=== PATIENT | male | born 1950 | race Caucasian/White ===

== ENCOUNTER 2020-12-11 00:32 | Inpatient (IN) | payer MEDICARE, OTHER ==
[~2020-12-11] VITALS: Ht 180.3 cm; Wt 85.0 kg
[2020-12-11 02:13] LABS: Basophils # (auto) 0 10 ^3/uL (0-0.2); Eosinophils # (auto) 0 10 ^3/uL (0-0.8); Hematocrit 31.2 % (41.0-53.0); Hemoglobin 10.7 g/dL (13.5-17.5); Lymphocytes # (auto) 0.3 10 ^3/uL (0.4-5.4); Lymphocytes % (auto) 4.2 % (10.0-50.0); Mean Corpuscular Hemoglobin 31.3 pg (28.0-32.0); Mean Corpuscular Hgb Conc. 34.5 g/dL (32.0-36.0); Mean Corpuscular Volume 90.9 fL (80.0-100.0); Monocytes # (auto) 0.1 10 ^3/uL (0-1.3); Monocytes % (auto) 1.4 % (0.0-12.0); Neutrophils # (auto) 7.5 10 ^3/uL (1.6-8.6); Neutrophils % (auto) 94.4 % (37.0-80.0); Platelet Count (auto) 67 10^3/uL (140-450); Red Blood Cells 3.43 10^6/uL (4.5-5.90)
[2020-12-11 02:19] LABS: Alanine Aminotransferase 30 U/L (16-61); Albumin 2.7 g/dL (3.4-5.0); Anion Gap 15 (5-15); Aspartate Aminotransferase 58 U/L (15-37); BUN/Creatinine Ratio 13.9; Blood Alcohol < 3.0 mg/dL (0-5); Blood Urea Nitrogen 27 mg/dL (7-18); Calcium 7.7 mg/dL (8.5-10.1); Carbon Dioxide 16 mmol/L (21-32); Chloride 109 mmol/L (98-107); GFR African American 44 mL/min; GFR Non-African American 37 mL/min; Glucose 87 mg/dL (74-106); Magnesium 1.5 mg/dL (1.6-2.6); Potassium 4.2 mmol/L (3.5-5.1); Sodium 140 mmol/L (136-145)
[2020-12-11 02:22] LABS: Lactic Acid w/Reflex 6.3 mmol/L (0.4-2.0)
[2020-12-11 02:24] LABS: Alkaline Phosphatase 59 U/L (45-117); Total Protein 6.6 g/dL (6.4-8.2)
[2020-12-11 02:42] LABS: Partial Thromboplastin Time 33.6 sec (23.0-31.2)
[2020-12-11 02:43] LABS: Urine Amorphous Crystal FEW /hpf (None Seen); Urine Bacteria FEW /hpf (None Seen); Urine Blood 3+ /uL (Negative); Urine Mucus FEW (None Seen); Urine Specific Gravity 1.017 (1.001-1.035); Urine WBC 4 /hpf (0 - 3)
[2020-12-11 02:58] LABS: Alcohol, Urine < 3.0 mg/dL (0-10); Amphetamine Screen, Urine POSITIVE (NEGATIVE); Barbiturate Scree,Urine NEGATIVE (NEGATIVE); Benzodiazephine Screen, Urine NEGATIVE (NEGATIVE); Cannabinoid Screen, Urine NEGATIVE (NEGATIVE); Cocaine Screen, Urine NEGATIVE (NEGATIVE); Opiate Scree,Urine NEGATIVE (NEGATIVE); Phencyclidine Screen, Urine NEGATIVE (NEGATIVE)
[2020-12-11] MEDS ORDERED: ACETAMINOPHEN 325 MG TAB PO ONE (03:00)
[2020-12-11] MEDS ORDERED: SODIUM CHLORIDE 0.9% 500 ML IV ONE (03:30)
[2020-12-11] MEDS ORDERED: PIPERACILLIN-TAZOB 3.375GM 100 ML IV ONE (03:30)
[2020-12-11] MEDS ORDERED: SODIUM CHLORIDE 0.9% 1,000 ML IV ONE (03:30)
[2020-12-11] MEDS ORDERED: ENOXAPARIN SOD 100 MG/1 ML SYRINGE SC ONE (03:30)
[2020-12-11] MEDS ORDERED: VANCOMYCIN 1GM/250ML 250 ML IV ONE (04:00)
[2020-12-11] MEDS ORDERED: ONDANSETRON HCL 4 MG/2 ML VIAL IV PRN (06:30)
[2020-12-11] MEDS ORDERED: VANCOMYCIN PER PHARMACY 0 MG IV SCH ×2 (06:30→12:45)
[2020-12-11] MEDS ORDERED: NITROGLYCERIN 0.4 MG SL TAB SL PRN (06:30)
[2020-12-11] MEDS ORDERED: MORPHINE SULF INJ 2 MG/ML SYRINGE 1ML IV PRN (06:30)
[2020-12-11] MEDS ORDERED: ALBUMIN 5% 250 ML IV ONE (07:45)
[2020-12-11] MEDS ORDERED: ASPirin 81 mg TAB PO SCH (10:00)
[2020-12-11] MEDS ORDERED: IOHEXOL 350 MG/ML 100ML IJ ONE (11:27)
[2020-12-11] MEDS ORDERED: LIDOCAINE 2%HCL (LOCAL ANESTH.) INJ 20ML MDV ONE (11:27)
[2020-12-11] MEDS ORDERED: fentaNYL CITRATE 100 MCG/2 ML VL ONE (11:33)
[2020-12-11] MEDS ORDERED: ANGIOMAX 250 MG VIAL IV ONE (11:33)
[2020-12-11] MEDS ORDERED: SODIUM CHL 0.9% 50 ML ONE (11:34)
[2020-12-11] MEDS ORDERED: MIDAZOLAM HCL 1MG/1ML-2 ML VIAL ONE (11:34)
[2020-12-11] MEDS ORDERED: ASPirin 325 MG TAB ONE (12:00)
[2020-12-11] MEDS ORDERED: PIPERACILLIN-TAZOB 3.375GM 100 ML IV SCH (12:00)
[2020-12-11] MEDS ORDERED: PIPERACILLIN-TAZOB 2.25GM 50 ML IV SCH (12:00)
[2020-12-11] MEDS ORDERED: TICAGRELOR 90 MG TAB ONE (12:00)
[2020-12-11] MEDS: PANTOPRAZOLE 40 MG TAB PO SCH (13:36)
[2020-12-11] MEDS: MAGNESIUM SULFATE 1GM/100ML 100 ML IV SCH ×2 (14:01→15:04)
[2020-12-11] MEDS ORDERED: OMEP-434 PO (15:00)
[2020-12-11] MEDS ORDERED: LISI-275 PO (15:00)
[2020-12-11] MEDS ORDERED: METF-370 PO (15:00)
[2020-12-11] MEDS ORDERED: ATOR40TA52 PO (15:00)
[2020-12-11] MEDS ORDERED: CLOP75TA70 PO (15:00)
[2020-12-11] MEDS ORDERED: MULT-223 PO (15:00)
[2020-12-11] MEDS ORDERED: CHOL20007 OR (15:00)
[2020-12-11] MEDS ORDERED: BUPR100T14 PO (15:00)
[2020-12-11] MEDS ORDERED: GLIP5TAB12 PO (15:00)
[2020-12-11 15:06] VITALS: BP 99/56
[2020-12-11] MEDS: ALBUMIN 25% 100 ML IV SCH ×2 (16:11→19:24)
[2020-12-11] MEDS ORDERED: CEFTRIAXONE SODIUM 2 GM in D5W 5% 50 ML IV ONE (17:00)
[2020-12-11 19:24] VITALS: BP 121/63
[2020-12-11] MEDS ORDERED: HYDROcodone-ACET 5/325MG TAB PO PRN (21:00)
[2020-12-11] MEDS: ATORVASTATIN 20 MG TAB PO SCH (21:24)
[2020-12-11 22:00] VITALS: BP 107/54
[2020-12-11] MEDS ORDERED: ATORVASTATIN 20 MG TAB PO SCH (22:00)
[2020-12-12] VITALS (57 sets, daily range): BP systolic 67–161; BP diastolic 26–78
[2020-12-12] MEDS: ALBUMIN 25% 100 ML IV SCH (04:59)
[2020-12-12] MEDS ORDERED: LORazepam 2MG/ML-1ML VIAL IV ONE (05:45)
[2020-12-12] MEDS ORDERED: LORazepam 2MG/ML-1ML VIAL IM ONE (05:45)
[2020-12-12] MEDS ORDERED: ALBUTEROL SULF 2.5 MG/0.5ML(0.5%) NEB SOLN ONE (05:56)
[2020-12-12] MEDS ORDERED: IPRATROPIUM BROM 0.5 MG/2.5ML INH SOL ONE (05:56)
[2020-12-12] MEDS ORDERED: SUCCINYLCHOLINE CHLORIDE 20 MG/ML 10ML VIAL IV ONE (05:59)
[2020-12-12] MEDS ORDERED: ETOMIDATE (2MG/ML) 20ML VIAL IV ONE (06:00)
[2020-12-12] MEDS ORDERED: PROPOFOL 100 ML IV ONE (06:20)
[2020-12-12] MEDS: MIDAZOLAM DRIP 50 mg/50mL 50 ML IV SCH ×3 (06:30→21:30)
[2020-12-12] MEDS ORDERED: MIDAZOLAM DRIP 50 mg/50mL 50 ML IV ONE (06:30)
[2020-12-12] MEDS: PROPOFOL 100 ML IV SCH ×5 (06:30→23:30)
[2020-12-12 07:21] LABS: Basophils # (auto) 0.2 10 ^3/uL (0-0.2); Basophils % (auto) 0.9 % (0.0-2.0); Eosinophils # (auto) 0.1 10 ^3/uL (0-0.8); Eosinophils % (auto) 0.4 % (0.0-7.0); Hematocrit 30.4 % (41.0-53.0); Hemoglobin 10.3 g/dL (13.5-17.5); Lymphocytes % (auto) 8.7 % (10.0-50.0); Mean Corpuscular Hemoglobin 31.6 pg (28.0-32.0); Mean Corpuscular Volume 92.8 fL (80.0-100.0); Monocytes # (auto) 1.4 10 ^3/uL (0-1.3); Platelet Count (auto) 102 10^3/uL (140-450); Red Blood Cells 3.28 10^6/uL (4.5-5.90); Red Cell Distribution Width 15.3 % (11.8-14.3); White Blood Cell 22.6 10^3/uL (4.4-10.8)
[2020-12-12] MEDS ORDERED: NOREPINEPHRINE 8 MG/250ML KIT 250 ML IV ONE (07:34)
[2020-12-12 07:44] LABS: Potassium 4.6 mmol/L (3.5-5.1)
[2020-12-12 08:00] LABS: Albumin 3.7 g/dL (3.4-5.0); BUN/Creatinine Ratio 21.3; Bilirubin, Total 1.6 mg/dL (0.2-1.0); Total Protein 7.1 g/dL (6.4-8.2)
[2020-12-12] MEDS: NOREPINEPHRINE 8 MG/250ML KIT 250 ML IV SCH (08:36)
[2020-12-12] MEDS: SODIUM BICARBONATE 50ML VIAL 150 ML in D5W 5% 1,000 ML IV SCH ×2 (09:30→20:50)
[2020-12-12] MEDS: PANTOPRAZOLE 40 MG TAB PO SCH (10:00)
[2020-12-12] MEDS ORDERED: CEFTRIAXONE SODIUM 2 GM in D5W 5% 50 ML IV SCH (10:00)
[2020-12-12] MEDS ORDERED: SACUBITRIL-VALSARTAN 24mg/26mg TAB PO SCH (10:00)
[2020-12-12] MEDS ORDERED: LINEZOLID 600MG/300ML 300 ML IV SCH (10:00)
[2020-12-12] MEDS: ASPirin 81 mg TAB PO SCH (11:03)
[2020-12-12] MEDS: CLOPIDOGREL BISULFATE 75 MG TAB PO SCH (11:04)
[2020-12-12] MEDS ORDERED: MEROPENEM 1GM IVPB 100 ML IV SCH (12:00)
[2020-12-12] MEDS ORDERED: ENOXAPARIN SOD 100 MG/1 ML SYRINGE SC SCH (13:00)
[2020-12-12] MEDS ORDERED: PENICILLIN G POTASSIUM 4,000,000 UNITS in D5W 5% 50 ML IV SCH (15:00)
[2020-12-12] MEDS: CEFTRIAXONE SODIUM 2 GM in D5W 5% 50 ML IV SCH (20:51)
[2020-12-12] MEDS: ATORVASTATIN 20 MG TAB PO SCH (22:18)
[2020-12-13] VITALS (104 sets, daily range): BP systolic 82–145; BP diastolic 39–73
[2020-12-13 05:09] LABS: Basophils # (auto) 0 10 ^3/uL (0-0.2); Basophils % (auto) 0.3 % (0.0-2.0); Eosinophils # (auto) 0.5 10 ^3/uL (0-0.8); Hemoglobin 8.7 g/dL (13.5-17.5); Lymphocytes # (auto) 0.8 10 ^3/uL (0.4-5.4); Mean Corpuscular Hemoglobin 31.2 pg (28.0-32.0); Mean Corpuscular Hgb Conc. 34.8 g/dL (32.0-36.0); Mean Corpuscular Volume 89.7 fL (80.0-100.0); Monocytes # (auto) 0.8 10 ^3/uL (0-1.3); Monocytes % (auto) 8.9 % (0.0-12.0); Neutrophils # (auto) 7.4 10 ^3/uL (1.6-8.6); Neutrophils % (auto) 77.8 % (37.0-80.0); Platelet Count (auto) 76 10^3/uL (140-450); Red Blood Cells 2.79 10^6/uL (4.5-5.90); Red Cell Distribution Width 14.6 % (11.8-14.3); White Blood Cell 9.5 10^3/uL (4.4-10.8)
[2020-12-13] MEDS: PROPOFOL 100 ML IV SCH ×2 (08:54→21:05)
[2020-12-13] MEDS: SODIUM BICARBONATE 50ML VIAL 150 ML in D5W 5% 1,000 ML IV SCH (08:55)
[2020-12-13] MEDS: CLOPIDOGREL BISULFATE 75 MG TAB PO SCH (09:29)
[2020-12-13] MEDS: ASPirin 81 mg TAB PO SCH (09:29)
[2020-12-13] MEDS: PANTOPRAZOLE 40 MG TAB PO SCH (09:41)
[2020-12-13] MEDS: CEFTRIAXONE SODIUM 2 GM in D5W 5% 50 ML IV SCH ×2 (09:45→20:46)
[2020-12-13] MEDS ORDERED: ENOXAPARIN SOD 40 MG/0.4 ML SYRINGE SC SCH (10:00)
[2020-12-13] MEDS: NOREPINEPHRINE 8 MG/250ML KIT 250 ML IV SCH (10:35)
[2020-12-13] MEDS: MIDAZOLAM DRIP 50 mg/50mL 50 ML IV SCH ×2 (12:54→21:05)
[2020-12-13 15:11] LABS: Protein, CSF 75.1 mg/dL (15-45)
[2020-12-13 16:20] LABS: CSF White Blood Cells 1 CUMM (0-5)
[2020-12-13] MEDS: SODIUM BICARBONATE 50ML VIAL 50 ML in SOD CHL 0.45% 1,000 ML IV SCH (18:27)
[2020-12-13] MEDS: ATORVASTATIN 20 MG TAB PO SCH (22:14)
[2020-12-14] VITALS (104 sets, daily range): BP systolic 87–147; BP diastolic 40–69
[2020-12-14 04:18] LABS: Basophils # (auto) 0 10 ^3/uL (0-0.2); Basophils % (auto) 0.3 % (0.0-2.0); Eosinophils # (auto) 0.3 10 ^3/uL (0-0.8); Eosinophils % (auto) 5.6 % (0.0-7.0); Hematocrit 25.2 % (41.0-53.0); Hemoglobin 8.8 g/dL (13.5-17.5); Lymphocytes # (auto) 0.5 10 ^3/uL (0.4-5.4); Mean Corpuscular Hemoglobin 31.2 pg (28.0-32.0); Mean Corpuscular Hgb Conc. 34.8 g/dL (32.0-36.0); Mean Corpuscular Volume 89.7 fL (80.0-100.0); Monocytes # (auto) 0.8 10 ^3/uL (0-1.3); Monocytes % (auto) 14.6 % (0.0-12.0); Neutrophils % (auto) 70.5 % (37.0-80.0); Nucleated Red Blood Cells % 0.1 %; Platelet Count (auto) 64 10^3/uL (140-450); Potassium 3.5 mmol/L (3.5-5.1); Red Blood Cells 2.81 10^6/uL (4.5-5.90); Red Cell Distribution Width 14.5 % (11.8-14.3); White Blood Cell 5.7 10^3/uL (4.4-10.8)
[2020-12-14 04:23] LABS: BUN/Creatinine Ratio 25.8; Calcium 7.3 mg/dL (8.5-10.1); Magnesium 2.2 mg/dL (1.6-2.6)
[2020-12-14] MEDS: SODIUM BICARBONATE 50ML VIAL 50 ML in SOD CHL 0.45% 1,000 ML IV SCH (04:37)
[2020-12-14] MEDS: PROPOFOL 100 ML IV SCH ×4 (04:38→19:30)
[2020-12-14] MEDS: NOREPINEPHRINE 8 MG/250ML KIT 250 ML IV SCH (04:39)
[2020-12-14] MEDS: CLOPIDOGREL BISULFATE 75 MG TAB PO SCH (09:13)
[2020-12-14] MEDS: ASPirin 81 mg TAB PO SCH (09:13)
[2020-12-14] MEDS: CEFTRIAXONE SODIUM 2 GM in D5W 5% 50 ML IV SCH ×2 (09:15→20:33)
[2020-12-14] MEDS: SODIUM CHLORIDE 0.9% 1,000 ML IV SCH ×2 (09:15→20:33)
[2020-12-14 09:34] LABS: Protein, Urine 22.9 mg/dL (0.0-11.9)
[2020-12-14] MEDS ORDERED: PANTOPRAZOLE 40 MG/10 ML VIAL INJ IV SCH (10:00)
[2020-12-14] MEDS: MIDAZOLAM DRIP 50 mg/50mL 50 ML IV SCH (11:28)
[2020-12-14] MEDS: PANTOPRAZOLE 40 MG/10 ML VIAL INJ IV SCH (22:18)
[2020-12-14] MEDS: ATORVASTATIN 20 MG TAB PO SCH (22:18)
[2020-12-15] VITALS (101 sets, daily range): BP systolic 82–127; BP diastolic 45–65
[2020-12-15] MEDS: PROPOFOL 100 ML IV SCH ×4 (01:48→18:10)
[2020-12-15 04:07] LABS: Basophils # (auto) 0 10 ^3/uL (0-0.2); Basophils % (auto) 0.3 % (0.0-2.0); Eosinophils # (auto) 0.2 10 ^3/uL (0-0.8); Hematocrit 24.1 % (41.0-53.0); Hemoglobin 8.3 g/dL (13.5-17.5); Lymphocytes # (auto) 0.6 10 ^3/uL (0.4-5.4); Lymphocytes % (auto) 10.7 % (10.0-50.0); Mean Corpuscular Hemoglobin 31.2 pg (28.0-32.0); Mean Corpuscular Hgb Conc. 34.5 g/dL (32.0-36.0); Mean Corpuscular Volume 90.5 fL (80.0-100.0); Monocytes # (auto) 0.9 10 ^3/uL (0-1.3); Monocytes % (auto) 15.6 % (0.0-12.0); Neutrophils # (auto) 4.2 10 ^3/uL (1.6-8.6); Neutrophils % (auto) 70.4 % (37.0-80.0); Nucleated Red Blood Cells % 0.1 %; Platelet Count (auto) 71 10^3/uL (140-450); Red Blood Cells 2.66 10^6/uL (4.5-5.90); Red Cell Distribution Width 14.3 % (11.8-14.3); White Blood Cell 5.9 10^3/uL (4.4-10.8)
[2020-12-15 04:22] LABS: Calcium 7.5 mg/dL (8.5-10.1); Magnesium 2.2 mg/dL (1.6-2.6); Potassium 3.5 mmol/L (3.5-5.1)
[2020-12-15 04:39] LABS: BUN/Creatinine Ratio 25.5; CRP High Sensitivity 15.6 mg/dL (< 0.3)
[2020-12-15 04:47] LABS: INR 1.08 (0.9-1.15); Partial Thromboplastin Time 32.2 sec (23.0-31.2)
[2020-12-15] MEDS: SODIUM CHLORIDE 0.9% 1,000 ML IV SCH (05:33)
[2020-12-15] MEDS: MIDAZOLAM DRIP 50 mg/50mL 50 ML IV SCH (05:35)
[2020-12-15] MEDS: NOREPINEPHRINE 8 MG/250ML KIT 250 ML IV SCH (07:45)
[2020-12-15] MEDS: CLOPIDOGREL BISULFATE 75 MG TAB PO SCH (09:42)
[2020-12-15] MEDS: PANTOPRAZOLE 40 MG/10 ML VIAL INJ IV SCH ×2 (09:42→21:49)
[2020-12-15] MEDS: ASPirin 81 mg TAB PO SCH (09:42)
[2020-12-15] MEDS: CEFTRIAXONE SODIUM 2 GM in D5W 5% 50 ML IV SCH (09:42)
[2020-12-15] MEDS: ATORVASTATIN 20 MG TAB PO SCH (21:49)
[2020-12-16] VITALS (100 sets, daily range): BP systolic 108–177; BP diastolic 54–82
[2020-12-16 04:08] LABS: Basophils # (auto) 0.1 10 ^3/uL (0-0.2); Basophils % (auto) 0.5 % (0.0-2.0); Eosinophils # (auto) 0.3 10 ^3/uL (0-0.8); Eosinophils % (auto) 2.5 % (0.0-7.0); Hematocrit 27.6 % (41.0-53.0); Hemoglobin 9.5 g/dL (13.5-17.5); Lymphocytes % (auto) 9.8 % (10.0-50.0); Mean Corpuscular Hemoglobin 30.7 pg (28.0-32.0); Mean Corpuscular Hgb Conc. 34.4 g/dL (32.0-36.0); Mean Corpuscular Volume 89.4 fL (80.0-100.0); Monocytes # (auto) 1.5 10 ^3/uL (0-1.3); Monocytes % (auto) 14.3 % (0.0-12.0); Neutrophils # (auto) 7.4 10 ^3/uL (1.6-8.6); Neutrophils % (auto) 72.9 % (37.0-80.0); Platelet Count (auto) 120 10^3/uL (140-450); Red Blood Cells 3.08 10^6/uL (4.5-5.90); Red Cell Distribution Width 14.7 % (11.8-14.3); White Blood Cell 10.2 10^3/uL (4.4-10.8)
[2020-12-16 04:26] LABS: Potassium 3.7 mmol/L (3.5-5.1)
[2020-12-16 04:31] LABS: BUN/Creatinine Ratio 26.7; Calcium 7.7 mg/dL (8.5-10.1)
[2020-12-16] MEDS: MIDAZOLAM DRIP 50 mg/50mL 50 ML IV SCH (07:00)
[2020-12-16] MEDS: NOREPINEPHRINE 8 MG/250ML KIT 250 ML IV SCH (07:45)
[2020-12-16] MEDS: ASPirin 81 mg TAB PO SCH (10:14)
[2020-12-16] MEDS: CLOPIDOGREL BISULFATE 75 MG TAB PO SCH (10:14)
[2020-12-16] MEDS: PANTOPRAZOLE 40 MG/10 ML VIAL INJ IV SCH ×2 (10:14→21:54)
[2020-12-16] MEDS: CEFTRIAXONE SODIUM 2 GM in D5W 5% 50 ML IV SCH (10:15)
[2020-12-16] MEDS: ATORVASTATIN 20 MG TAB PO SCH (21:54)
[2020-12-16] MEDS: Jevity 1.2 Cal/Fiber 1 Liter GT SCH (22:25)
[2020-12-17] VITALS (100 sets, daily range): BP systolic 84–197; BP diastolic 45–98
[2020-12-17] MEDS ORDERED: LABETALOL HCL 5 MG/ML 4ML SYRINGE IV ONE (00:30)
[2020-12-17 05:40] LABS: Basophils # (auto) 0.1 10 ^3/uL (0-0.2); Basophils % (auto) 0.7 % (0.0-2.0); Eosinophils # (auto) 0.5 10 ^3/uL (0-0.8); Eosinophils % (auto) 5.9 % (0.0-7.0); Hematocrit 28.6 % (41.0-53.0); Lymphocytes # (auto) 1.1 10 ^3/uL (0.4-5.4); Lymphocytes % (auto) 12.4 % (10.0-50.0); Mean Corpuscular Hgb Conc. 34.9 g/dL (32.0-36.0); Mean Corpuscular Volume 88.9 fL (80.0-100.0); Monocytes # (auto) 1.2 10 ^3/uL (0-1.3); Monocytes % (auto) 13.5 % (0.0-12.0); Neutrophils # (auto) 5.8 10 ^3/uL (1.6-8.6); Neutrophils % (auto) 67.5 % (37.0-80.0); Platelet Count (auto) 154 10^3/uL (140-450); Red Blood Cells 3.22 10^6/uL (4.5-5.90); Red Cell Distribution Width 14.8 % (11.8-14.3); White Blood Cell 8.6 10^3/uL (4.4-10.8)
[2020-12-17 05:59] LABS: BUN/Creatinine Ratio 27.6; Potassium 3.8 mmol/L (3.5-5.1)
[2020-12-17] MEDS ORDERED: dilTIAZem 25 MG/5 ML VIAL IV ONE (07:00)
[2020-12-17] MEDS: MIDAZOLAM DRIP 50 mg/50mL 50 ML IV SCH (07:00)
[2020-12-17] MEDS: PROPOFOL 100 ML IV SCH (07:45)
[2020-12-17] MEDS: NOREPINEPHRINE 8 MG/250ML KIT 250 ML IV SCH (07:45)
[2020-12-17] MEDS: MORPHINE SULF INJ 2 MG/ML SYRINGE 1ML IV PRN ×2 (09:14→22:43)
[2020-12-17] MEDS: ASPirin 81 mg TAB PO SCH (09:15)
[2020-12-17] MEDS: CLOPIDOGREL BISULFATE 75 MG TAB PO SCH (09:15)
[2020-12-17] MEDS: PANTOPRAZOLE 40 MG/10 ML VIAL INJ IV SCH ×2 (09:15→21:57)
[2020-12-17] MEDS: CEFTRIAXONE SODIUM 2 GM in D5W 5% 50 ML IV SCH (09:15)
[2020-12-17] MEDS ORDERED: ENOXAPARIN SOD 100 MG/1 ML SYRINGE SC SCH (10:00)
[2020-12-17] MEDS: SODIUM CHLORIDE 0.9% 1,000 ML IV SCH ×2 (10:07→21:58)
[2020-12-17] MEDS ORDERED: IOHEXOL 350 MG/ML 100ML IJ ONE (10:35)
[2020-12-17] MEDS: fentaNYL Drip 2500mCg/250mlNS 250 ML IV SCH ×2 (16:15→23:15)
[2020-12-17] MEDS ORDERED: HEPARIN SODIUM (PORCINE) 5000 UNITS/ML 1ML VIAL ONE (20:03)
[2020-12-17] MEDS: ATORVASTATIN 20 MG TAB PO SCH (21:49)
[2020-12-18] VITALS (84 sets, daily range): BP systolic 82–166; BP diastolic 45–90
[2020-12-18] MEDS: MORPHINE SULF INJ 2 MG/ML SYRINGE 1ML IV PRN ×2 (02:09→06:17)
[2020-12-18] MEDS: SODIUM CHLORIDE 0.9% 1,000 ML IV SCH (05:12)
[2020-12-18] MEDS: PROPOFOL 100 ML IV SCH (05:12)
[2020-12-18] MEDS: MIDAZOLAM DRIP 50 mg/50mL 50 ML IV SCH ×3 (05:13→23:08)
[2020-12-18] MEDS: ASPirin 81 mg TAB PO SCH (10:05)
[2020-12-18] MEDS: ENOXAPARIN SOD 40 MG/0.4 ML SYRINGE SC SCH (10:05)
[2020-12-18] MEDS: PANTOPRAZOLE 40 MG/10 ML VIAL INJ IV SCH ×2 (10:05→21:54)
[2020-12-18] MEDS: CEFTRIAXONE SODIUM 2 GM in D5W 5% 50 ML IV SCH (10:05)
[2020-12-18] MEDS: CLOPIDOGREL BISULFATE 75 MG TAB PO SCH (10:06)
[2020-12-18] MEDS ORDERED: FUROSEMIDE 40 MG/4 ML VIAL IV ONE (10:15)
[2020-12-18 10:56] LABS: Basophils # (auto) 0.1 10 ^3/uL (0-0.2); Basophils % (auto) 0.7 % (0.0-2.0); Eosinophils # (auto) 0.5 10 ^3/uL (0-0.8); Eosinophils % (auto) 6.6 % (0.0-7.0); Hematocrit 26.5 % (41.0-53.0); Lymphocytes # (auto) 0.9 10 ^3/uL (0.4-5.4); Lymphocytes % (auto) 10.8 % (10.0-50.0); Mean Corpuscular Hemoglobin 30.3 pg (28.0-32.0); Mean Corpuscular Hgb Conc. 33.8 g/dL (32.0-36.0); Mean Corpuscular Volume 89.7 fL (80.0-100.0); Monocytes # (auto) 0.7 10 ^3/uL (0-1.3); Monocytes % (auto) 8.6 % (0.0-12.0); Neutrophils % (auto) 73.3 % (37.0-80.0); Nucleated Red Blood Cells % 0.1 %; Platelet Count (auto) 163 10^3/uL (140-450); Red Blood Cells 2.95 10^6/uL (4.5-5.90); Red Cell Distribution Width 14.8 % (11.8-14.3); White Blood Cell 8.2 10^3/uL (4.4-10.8)
[2020-12-18 11:20] LABS: Albumin 1.9 g/dL (3.4-5.0); Calcium 7.9 mg/dL (8.5-10.1); Magnesium 2.2 mg/dL (1.6-2.6); Potassium 3.6 mmol/L (3.5-5.1)
[2020-12-18 11:23] LABS: BUN/Creatinine Ratio 23.8; Total Protein 6.3 g/dL (6.4-8.2)
[2020-12-18 11:58] LABS: Hepatitis B Surface Antibody Negative
[2020-12-18 12:31] LABS: Hepatitis A Total Antibody Negative
[2020-12-18 15:13] LABS: Hepatitis B Surface Antigen Negative (Negative)
[2020-12-18 15:17] LABS: Hepatitis B Core Total AB Positive
[2020-12-18 15:18] LABS: Hepatitis C Antibody Positive (Negative)
[2020-12-18] MEDS: SOD CHL 0.45% 1,000 ML IV SCH (16:39)
[2020-12-18] MEDS: Jevity 1.2 Cal/Fiber 1 Liter GT SCH (17:02)
[2020-12-18] MEDS: fentaNYL Drip 2500mCg/250mlNS 250 ML IV SCH (17:23)
[2020-12-18] MEDS: NOREPINEPHRINE 8 MG/250ML KIT 250 ML IV SCH (19:00)
[2020-12-18] MEDS: ATORVASTATIN 20 MG TAB PO SCH (21:55)
[2020-12-19] VITALS (96 sets, daily range): BP systolic 102–155; BP diastolic 45–77
[2020-12-19] MEDS: SOD CHL 0.45% 1,000 ML IV SCH (06:05)
[2020-12-19] MEDS: PROPOFOL 100 ML IV SCH (07:45)
[2020-12-19] MEDS: NOREPINEPHRINE 8 MG/250ML KIT 250 ML IV SCH (07:45)
[2020-12-19] MEDS: MIDAZOLAM DRIP 50 mg/50mL 50 ML IV SCH ×2 (07:46→22:00)
[2020-12-19] MEDS: ENOXAPARIN SOD 40 MG/0.4 ML SYRINGE SC SCH (09:33)
[2020-12-19] MEDS: PANTOPRAZOLE 40 MG/10 ML VIAL INJ IV SCH ×2 (09:33→22:00)
[2020-12-19] MEDS: ASPirin 81 mg TAB PO SCH (09:33)
[2020-12-19] MEDS: CLOPIDOGREL BISULFATE 75 MG TAB PO SCH (09:33)
[2020-12-19] MEDS: CEFTRIAXONE SODIUM 2 GM in D5W 5% 50 ML IV SCH (09:39)
[2020-12-19] MEDS ORDERED: METOPROLOL TARTRATE 25 MG TAB PO ONE (10:45)
[2020-12-19 11:01] LABS: Basophils # (auto) 0.1 10 ^3/uL (0-0.2); Basophils % (auto) 0.9 % (0.0-2.0); Eosinophils # (auto) 0.5 10 ^3/uL (0-0.8); Eosinophils % (auto) 4.2 % (0.0-7.0); Hematocrit 27.8 % (41.0-53.0); Hemoglobin 9.3 g/dL (13.5-17.5); Lymphocytes # (auto) 1.1 10 ^3/uL (0.4-5.4); Lymphocytes % (auto) 10.1 % (10.0-50.0); Mean Corpuscular Hemoglobin 30.2 pg (28.0-32.0); Mean Corpuscular Hgb Conc. 33.5 g/dL (32.0-36.0); Mean Corpuscular Volume 89.9 fL (80.0-100.0); Monocytes # (auto) 0.8 10 ^3/uL (0-1.3); Monocytes % (auto) 7.3 % (0.0-12.0); Neutrophils # (auto) 8.4 10 ^3/uL (1.6-8.6); Neutrophils % (auto) 77.5 % (37.0-80.0); Nucleated Red Blood Cells % 0.1 %; Platelet Count (auto) 188 10^3/uL (140-450); Red Blood Cells 3.09 10^6/uL (4.5-5.90); White Blood Cell 10.9 10^3/uL (4.4-10.8)
[2020-12-19 11:23] LABS: BUN/Creatinine Ratio 20.8; Calcium 8.1 mg/dL (8.5-10.1); Potassium 3.8 mmol/L (3.5-5.1)
[2020-12-19] MEDS: FREE WATER GT SCH ×3 (12:21→22:00)
[2020-12-19] MEDS: LACTULOSE 20Gm/30ML SOLN PO SCH ×2 (12:21→17:36)
[2020-12-19] MEDS ORDERED: ACETAMINOPHEN 650 mg PER 20.3 mL UD PO PRN (12:45)
[2020-12-19] MEDS: fentaNYL Drip 2500mCg/250mlNS 250 ML IV SCH (16:27)
[2020-12-19] MEDS: ATORVASTATIN 20 MG TAB PO SCH (22:00)
[2020-12-19] MEDS: METOPROLOL TARTRATE 25 MG TAB PO SCH ×2 (22:00→22:51)
[2020-12-20] VITALS (103 sets, daily range): BP systolic 103–147; BP diastolic 45–70
[2020-12-20] MEDS: LACTULOSE 20Gm/30ML SOLN PO SCH ×4 (00:28→18:42)
[2020-12-20] MEDS: FREE WATER GT SCH ×6 (02:00→21:03)
[2020-12-20 04:31] LABS: Basophils # (auto) 0.1 10 ^3/uL (0-0.2); Basophils % (auto) 0.7 % (0.0-2.0); Eosinophils # (auto) 0.4 10 ^3/uL (0-0.8); Eosinophils % (auto) 3.6 % (0.0-7.0); Hematocrit 26.4 % (41.0-53.0); Hemoglobin 9.1 g/dL (13.5-17.5); Lymphocytes % (auto) 10.1 % (10.0-50.0); Mean Corpuscular Hemoglobin 31.1 pg (28.0-32.0); Mean Corpuscular Hgb Conc. 34.5 g/dL (32.0-36.0); Mean Corpuscular Volume 90.3 fL (80.0-100.0); Monocytes # (auto) 0.7 10 ^3/uL (0-1.3); Monocytes % (auto) 7.1 % (0.0-12.0); Neutrophils # (auto) 7.8 10 ^3/uL (1.6-8.6); Neutrophils % (auto) 78.5 % (37.0-80.0); Platelet Count (auto) 182 10^3/uL (140-450); Red Blood Cells 2.92 10^6/uL (4.5-5.90); Red Cell Distribution Width 14.9 % (11.8-14.3)
[2020-12-20 04:57] LABS: Potassium 3.8 mmol/L (3.5-5.1)
[2020-12-20 05:04] LABS: Albumin 1.7 g/dL (3.4-5.0); BUN/Creatinine Ratio 21.9; Calcium 7.7 mg/dL (8.5-10.1)
[2020-12-20 05:06] LABS: Bilirubin, Total 1.3 mg/dL (0.2-1.0)
[2020-12-20] MEDS: MIDAZOLAM DRIP 50 mg/50mL 50 ML IV SCH ×2 (06:00→10:25)
[2020-12-20] MEDS: PROPOFOL 100 ML IV SCH (07:45)
[2020-12-20] MEDS: NOREPINEPHRINE 8 MG/250ML KIT 250 ML IV SCH (07:45)
[2020-12-20] MEDS: ENOXAPARIN SOD 40 MG/0.4 ML SYRINGE SC SCH (10:24)
[2020-12-20] MEDS: PANTOPRAZOLE 40 MG/10 ML VIAL INJ IV SCH ×2 (10:24→21:03)
[2020-12-20] MEDS: CLOPIDOGREL BISULFATE 75 MG TAB PO SCH (10:24)
[2020-12-20] MEDS: CEFTRIAXONE SODIUM 2 GM in D5W 5% 50 ML IV SCH (10:24)
[2020-12-20] MEDS: ASPirin 81 mg TAB PO SCH (10:24)
[2020-12-20] MEDS: METOPROLOL TARTRATE 50 MG TAB PO SCH ×3 (10:43→21:05)
[2020-12-20] MEDS ORDERED: ALBUMIN 25% 100 ML IV ONE (13:45)
[2020-12-20] MEDS ORDERED: FUROSEMIDE 40 MG/4 ML VIAL IV ONE (13:45)
[2020-12-20] MEDS: ATORVASTATIN 20 MG TAB PO SCH (21:03)
[2020-12-20] MEDS: QUEtiapine FUMARATE 25 MG TAB GT SCH (21:03)
[2020-12-21] VITALS (86 sets, daily range): BP systolic 83–188; BP diastolic 43–101
[2020-12-21] MEDS: FREE WATER GT SCH ×6 (01:32→22:00)
[2020-12-21] MEDS: NOREPINEPHRINE 8 MG/250ML KIT 250 ML IV SCH (01:45)
[2020-12-21 04:29] LABS: Basophils # (auto) 0.1 10 ^3/uL (0-0.2); Eosinophils # (auto) 0.2 10 ^3/uL (0-0.8); Eosinophils % (auto) 3.1 % (0.0-7.0); Hematocrit 26.9 % (41.0-53.0); Lymphocytes # (auto) 1.3 10 ^3/uL (0.4-5.4); Lymphocytes % (auto) 16.3 % (10.0-50.0); Mean Corpuscular Hemoglobin 30.1 pg (28.0-32.0); Mean Corpuscular Hgb Conc. 33.4 g/dL (32.0-36.0); Mean Corpuscular Volume 90.2 fL (80.0-100.0); Monocytes # (auto) 0.6 10 ^3/uL (0-1.3); Neutrophils # (auto) 5.7 10 ^3/uL (1.6-8.6); Neutrophils % (auto) 71.6 % (37.0-80.0); Nucleated Red Blood Cells % 0.1 %; Platelet Count (auto) 175 10^3/uL (140-450); Red Blood Cells 2.98 10^6/uL (4.5-5.90); Red Cell Distribution Width 14.9 % (11.8-14.3); White Blood Cell 7.9 10^3/uL (4.4-10.8)
[2020-12-21 05:26] LABS: BUN/Creatinine Ratio 16.7; Calcium 7.7 mg/dL (8.5-10.1); Potassium 4.4 mmol/L (3.5-5.1)
[2020-12-21 05:29] LABS: Bilirubin, Total 1.1 mg/dL (0.2-1.0); Total Protein 7.7 g/dL (6.4-8.2)
[2020-12-21] MEDS: LACTULOSE 20Gm/30ML SOLN PO SCH ×4 (06:03→18:00)
[2020-12-21] MEDS: PROPOFOL 100 ML IV SCH (07:45)
[2020-12-21] MEDS: ENOXAPARIN SOD 40 MG/0.4 ML SYRINGE SC SCH (09:50)
[2020-12-21] MEDS: PANTOPRAZOLE 40 MG/10 ML VIAL INJ IV SCH ×2 (09:50→22:00)
[2020-12-21] MEDS: CLOPIDOGREL BISULFATE 75 MG TAB PO SCH (09:50)
[2020-12-21] MEDS: ASPirin 81 mg TAB PO SCH (09:50)
[2020-12-21] MEDS: CEFTRIAXONE SODIUM 2 GM in D5W 5% 50 ML IV SCH (09:56)
[2020-12-21] MEDS: METOPROLOL TARTRATE 50 MG TAB PO SCH ×2 (10:11→22:00)
[2020-12-21] MEDS: fentaNYL Drip 2500mCg/250mlNS 250 ML IV SCH (16:15)
[2020-12-21] MEDS ORDERED: ENOXAPARIN SOD 30 MG/0.3 ML SYRINGE IV ONE (17:30)
[2020-12-21] MEDS: QUEtiapine FUMARATE 25 MG TAB GT SCH (22:00)
[2020-12-21] MEDS: MIDAZOLAM DRIP 50 mg/50mL 50 ML IV SCH (22:00)
[2020-12-21] MEDS: ENOXAPARIN SOD 60 MG/0.6 ML SYRINGE SC SCH (22:00)
[2020-12-21] MEDS: ATORVASTATIN 20 MG TAB PO SCH (22:00)
[2020-12-22] VITALS (85 sets, daily range): BP systolic 75–167; BP diastolic 31–90
[2020-12-22] MEDS: fentaNYL Drip 2500mCg/250mlNS 250 ML IV SCH ×2 (01:00→16:15)
[2020-12-22] MEDS: NOREPINEPHRINE 8 MG/250ML KIT 250 ML IV SCH ×2 (01:45→12:52)
[2020-12-22] MEDS: FREE WATER GT SCH ×6 (02:00→22:04)
[2020-12-22 04:37] LABS: Basophils # (auto) 0.1 10 ^3/uL (0-0.2); Basophils % (auto) 1.1 % (0.0-2.0); Eosinophils # (auto) 0.3 10 ^3/uL (0-0.8); Eosinophils % (auto) 4.2 % (0.0-7.0); Hematocrit 25.8 % (41.0-53.0); Hemoglobin 8.8 g/dL (13.5-17.5); Lymphocytes # (auto) 1.1 10 ^3/uL (0.4-5.4); Lymphocytes % (auto) 15.5 % (10.0-50.0); Mean Corpuscular Hemoglobin 30.4 pg (28.0-32.0); Mean Corpuscular Hgb Conc. 34.1 g/dL (32.0-36.0); Mean Corpuscular Volume 89.2 fL (80.0-100.0); Monocytes # (auto) 0.6 10 ^3/uL (0-1.3); Monocytes % (auto) 8.9 % (0.0-12.0); Neutrophils # (auto) 5.1 10 ^3/uL (1.6-8.6); Neutrophils % (auto) 70.3 % (37.0-80.0); Platelet Count (auto) 156 10^3/uL (140-450); Red Blood Cells 2.89 10^6/uL (4.5-5.90); Red Cell Distribution Width 14.9 % (11.8-14.3); White Blood Cell 7.3 10^3/uL (4.4-10.8)
[2020-12-22 04:51] LABS: Albumin 1.9 g/dL (3.4-5.0); Potassium 3.7 mmol/L (3.5-5.1)
[2020-12-22 04:54] LABS: BUN/Creatinine Ratio 18.4; Bilirubin, Total 0.9 mg/dL (0.2-1.0); Total Protein 7.7 g/dL (6.4-8.2)
[2020-12-22] MEDS: LACTULOSE 20Gm/30ML SOLN PO SCH ×4 (05:50→18:05)
[2020-12-22] MEDS: MIDAZOLAM DRIP 50 mg/50mL 50 ML IV SCH (07:30)
[2020-12-22] MEDS: PROPOFOL 100 ML IV SCH (07:45)
[2020-12-22] MEDS: CEFTRIAXONE SODIUM 2 GM in D5W 5% 50 ML IV SCH (10:05)
[2020-12-22] MEDS: ASPirin 81 mg TAB PO SCH (10:05)
[2020-12-22] MEDS: PANTOPRAZOLE 40 MG/10 ML VIAL INJ IV SCH ×2 (10:05→22:05)
[2020-12-22] MEDS: CLOPIDOGREL BISULFATE 75 MG TAB PO SCH (10:06)
[2020-12-22] MEDS: ENOXAPARIN SOD 60 MG/0.6 ML SYRINGE SC SCH ×2 (10:06→22:05)
[2020-12-22] MEDS: METOPROLOL TARTRATE 50 MG TAB PO SCH (10:06)
[2020-12-22] MEDS: ACETAMINOPHEN 650 mg PER 20.3 mL UD GT PRN (11:19)
[2020-12-22] MEDS ORDERED: ALBUMIN 25% 100 ML IV ONE (12:30)
[2020-12-22] MEDS: QUEtiapine FUMARATE 25 MG TAB GT SCH (22:04)
[2020-12-22] MEDS: ATORVASTATIN 20 MG TAB PO SCH (22:05)
[2020-12-23] VITALS (88 sets, daily range): BP systolic 97–181; BP diastolic 46–117
[2020-12-23] MEDS: NOREPINEPHRINE 8 MG/250ML KIT 250 ML IV SCH ×2 (01:34→12:30)
[2020-12-23] MEDS: FREE WATER GT SCH ×6 (02:00→21:15)
[2020-12-23] MEDS: MIDAZOLAM DRIP 50 mg/50mL 50 ML IV SCH ×4 (02:00→11:31)
[2020-12-23 04:17] LABS: Basophils # (auto) 0.1 10 ^3/uL (0-0.2); Basophils % (auto) 1.3 % (0.0-2.0); Eosinophils # (auto) 0.3 10 ^3/uL (0-0.8); Eosinophils % (auto) 4.8 % (0.0-7.0); Hematocrit 25.5 % (41.0-53.0); Hemoglobin 8.5 g/dL (13.5-17.5); Lymphocytes # (auto) 1.3 10 ^3/uL (0.4-5.4); Lymphocytes % (auto) 22.3 % (10.0-50.0); Mean Corpuscular Hemoglobin 29.7 pg (28.0-32.0); Mean Corpuscular Hgb Conc. 33.3 g/dL (32.0-36.0); Mean Corpuscular Volume 89.3 fL (80.0-100.0); Monocytes # (auto) 0.6 10 ^3/uL (0-1.3); Monocytes % (auto) 9.9 % (0.0-12.0); Neutrophils # (auto) 3.6 10 ^3/uL (1.6-8.6); Neutrophils % (auto) 61.7 % (37.0-80.0); Nucleated Red Blood Cells % 0.2 %; Platelet Count (auto) 151 10^3/uL (140-450); Red Blood Cells 2.86 10^6/uL (4.5-5.90); Red Cell Distribution Width 14.9 % (11.8-14.3); White Blood Cell 5.7 10^3/uL (4.4-10.8)
[2020-12-23 04:38] LABS: Potassium 3.8 mmol/L (3.5-5.1)
[2020-12-23 04:46] LABS: BUN/Creatinine Ratio 17.9; Bilirubin, Total 0.9 mg/dL (0.2-1.0); Total Protein 7.8 g/dL (6.4-8.2)
[2020-12-23] MEDS: LACTULOSE 20Gm/30ML SOLN PO SCH ×5 (06:04→23:17)
[2020-12-23] MEDS: PROPOFOL 100 ML IV SCH (07:45)
[2020-12-23] MEDS: PANTOPRAZOLE 40 MG/10 ML VIAL INJ IV SCH ×2 (10:06→21:16)
[2020-12-23] MEDS: CLOPIDOGREL BISULFATE 75 MG TAB PO SCH (10:15)
[2020-12-23] MEDS: ENOXAPARIN SOD 60 MG/0.6 ML SYRINGE SC SCH ×2 (10:15→21:16)
[2020-12-23] MEDS: CEFTRIAXONE SODIUM 2 GM in D5W 5% 50 ML IV SCH (10:15)
[2020-12-23] MEDS: ASPirin 81 mg TAB PO SCH (10:15)
[2020-12-23] MEDS: fentaNYL Drip 2500mCg/250mlNS 250 ML IV SCH ×2 (16:15→20:30)
[2020-12-23] MEDS: QUEtiapine FUMARATE 25 MG TAB GT SCH (21:15)
[2020-12-23] MEDS: ATORVASTATIN 20 MG TAB PO SCH (21:16)
[2020-12-24] VITALS (84 sets, daily range): BP systolic 91–172; BP diastolic 38–74
[2020-12-24] MEDS: MIDAZOLAM DRIP 50 mg/50mL 50 ML IV SCH ×5 (00:30→22:11)
[2020-12-24] MEDS: FREE WATER GT SCH ×8 (02:00→21:38)
[2020-12-24 04:22] LABS: Basophils # (auto) 0.1 10 ^3/uL (0-0.2); Eosinophils # (auto) 0.2 10 ^3/uL (0-0.8); Eosinophils % (auto) 3.7 % (0.0-7.0); Hematocrit 23.4 % (41.0-53.0); Lymphocytes % (auto) 17.2 % (10.0-50.0); Mean Corpuscular Hemoglobin 30.4 pg (28.0-32.0); Mean Corpuscular Hgb Conc. 34.1 g/dL (32.0-36.0); Mean Corpuscular Volume 89.3 fL (80.0-100.0); Monocytes # (auto) 0.6 10 ^3/uL (0-1.3); Monocytes % (auto) 10.3 % (0.0-12.0); Neutrophils # (auto) 3.8 10 ^3/uL (1.6-8.6); Neutrophils % (auto) 67.8 % (37.0-80.0); Platelet Count (auto) 141 10^3/uL (140-450); Red Blood Cells 2.62 10^6/uL (4.5-5.90); Red Cell Distribution Width 15.2 % (11.8-14.3); White Blood Cell 5.5 10^3/uL (4.4-10.8)
[2020-12-24 04:46] LABS: Albumin 1.8 g/dL (3.4-5.0); Calcium 7.8 mg/dL (8.5-10.1); Potassium 3.8 mmol/L (3.5-5.1)
[2020-12-24 04:49] LABS: BUN/Creatinine Ratio 17.5; Total Protein 7.6 g/dL (6.4-8.2)
[2020-12-24] MEDS: LACTULOSE 20Gm/30ML SOLN PO SCH ×3 (05:39→17:55)
[2020-12-24] MEDS: PROPOFOL 100 ML IV SCH (07:45)
[2020-12-24] MEDS: PANTOPRAZOLE 40 MG/10 ML VIAL INJ IV SCH ×2 (09:50→21:37)
[2020-12-24] MEDS: CEFTRIAXONE SODIUM 2 GM in D5W 5% 50 ML IV SCH (09:50)
[2020-12-24] MEDS: ENOXAPARIN SOD 60 MG/0.6 ML SYRINGE SC SCH ×3 (10:00→22:00)
[2020-12-24] MEDS: ASPirin 81 mg TAB PO SCH (11:13)
[2020-12-24] MEDS: CLOPIDOGREL BISULFATE 75 MG TAB PO SCH (11:13)
[2020-12-24] MEDS: NOREPINEPHRINE 8 MG/250ML KIT 250 ML IV SCH (12:30)
[2020-12-24] MEDS: Jevity 1.2 Cal/Fiber 1 Liter GT SCH (16:56)
[2020-12-24] MEDS: ATORVASTATIN 20 MG TAB PO SCH (21:37)
[2020-12-24] MEDS: QUEtiapine FUMARATE 25 MG TAB GT SCH (21:37)
[2020-12-24] MEDS: SOD CHL 0.45% 1,000 ML IV SCH (21:41)
[2020-12-24] MEDS: fentaNYL Drip 2500mCg/250mlNS 250 ML IV SCH (23:56)
[2020-12-25] VITALS (117 sets, daily range): BP systolic 61–163; BP diastolic 38–99
[2020-12-25] MEDS: FREE WATER GT SCH ×6 (01:06→21:11)
[2020-12-25] MEDS: SOD CHL 0.45% 1,000 ML IV SCH ×3 (02:20→15:40)
[2020-12-25] MEDS: MIDAZOLAM DRIP 50 mg/50mL 50 ML IV SCH ×2 (02:28→06:49)
[2020-12-25 04:22] LABS: Basophils # (auto) 0.1 10 ^3/uL (0-0.2); Eosinophils # (auto) 0.2 10 ^3/uL (0-0.8); Hemoglobin 8.2 g/dL (13.5-17.5); Neutrophils # (auto) 3.6 10 ^3/uL (1.6-8.6); White Blood Cell 5.3 10^3/uL (4.4-10.8)
[2020-12-25 04:23] LABS: Eosinophils % (auto) 3.7 % (0.0-7.0); Lymphocytes % (auto) 17.8 % (10.0-50.0); Mean Corpuscular Hemoglobin 30.3 pg (28.0-32.0); Mean Corpuscular Hgb Conc. 34.2 g/dL (32.0-36.0); Mean Corpuscular Volume 88.8 fL (80.0-100.0); Monocytes # (auto) 0.6 10 ^3/uL (0-1.3); Monocytes % (auto) 10.3 % (0.0-12.0); Neutrophils % (auto) 67.2 % (37.0-80.0); Nucleated Red Blood Cells % 0.1 %; Platelet Count (auto) 156 10^3/uL (140-450)
[2020-12-25 04:35] LABS: Potassium 3.9 mmol/L (3.5-5.1)
[2020-12-25 04:42] LABS: Albumin 1.7 g/dL (3.4-5.0); BUN/Creatinine Ratio 16.9; Bilirubin, Total 0.9 mg/dL (0.2-1.0); Calcium 7.8 mg/dL (8.5-10.1); Magnesium 1.8 mg/dL (1.6-2.6); Total Protein 7.9 g/dL (6.4-8.2)
[2020-12-25] MEDS: LACTULOSE 20Gm/30ML SOLN PO SCH ×4 (06:00→18:51)
[2020-12-25] MEDS: PROPOFOL 100 ML IV SCH (07:45)
[2020-12-25] MEDS ORDERED: LIDOCAINE 2%HCL (LOCAL ANESTH.) INJ 20ML MDV ONE (08:04)
[2020-12-25] MEDS ORDERED: IOHEXOL 350 MG/ML 100ML IJ ONE (08:04)
[2020-12-25] MEDS ORDERED: ANGIOMAX 250 MG VIAL IV ONE (09:08)
[2020-12-25] MEDS ORDERED: SODIUM CHL 0.9% 50 ML ONE (09:09)
[2020-12-25] MEDS: CLOPIDOGREL BISULFATE 75 MG TAB PO SCH (10:14)
[2020-12-25] MEDS: PANTOPRAZOLE 40 MG/10 ML VIAL INJ IV SCH ×2 (10:14→21:10)
[2020-12-25] MEDS: ASPirin 81 mg TAB PO SCH (10:15)
[2020-12-25] MEDS: CEFTRIAXONE SODIUM 2 GM in D5W 5% 50 ML IV SCH (10:40)
[2020-12-25] MEDS: NOREPINEPHRINE 8 MG/250ML KIT 250 ML IV SCH (11:04)
[2020-12-25] MEDS ORDERED: SODIUM CHLORIDE 0.9% 500 ML IV ONE (11:30)
[2020-12-25 12:11] LABS: Basophils # (auto) 0.1 10 ^3/uL (0-0.2); Basophils % (auto) 1.1 % (0.0-2.0); Eosinophils # (auto) 0.4 10 ^3/uL (0-0.8); Eosinophils % (auto) 3.6 % (0.0-7.0); Hematocrit 26.2 % (41.0-53.0); Hemoglobin 8.7 g/dL (13.5-17.5); Lymphocytes # (auto) 1.9 10 ^3/uL (0.4-5.4); Lymphocytes % (auto) 18.1 % (10.0-50.0); Mean Corpuscular Hemoglobin 29.9 pg (28.0-32.0); Mean Corpuscular Hgb Conc. 33.1 g/dL (32.0-36.0); Mean Corpuscular Volume 90.4 fL (80.0-100.0); Monocytes # (auto) 0.8 10 ^3/uL (0-1.3); Monocytes % (auto) 7.9 % (0.0-12.0); Neutrophils # (auto) 7.2 10 ^3/uL (1.6-8.6); Neutrophils % (auto) 69.3 % (37.0-80.0); Nucleated Red Blood Cells % 0.2 %; Platelet Count (auto) 311 10^3/uL (140-450); Red Blood Cells 2.89 10^6/uL (4.5-5.90); Red Cell Distribution Width 15.4 % (11.8-14.3); White Blood Cell 10.4 10^3/uL (4.4-10.8)
[2020-12-25 12:32] LABS: Albumin 1.9 g/dL (3.4-5.0); BUN/Creatinine Ratio 13.3; Calcium 7.8 mg/dL (8.5-10.1); Potassium 4.4 mmol/L (3.5-5.1)
[2020-12-25 12:37] LABS: Bilirubin, Total 0.8 mg/dL (0.2-1.0); Lactic Acid w/Reflex 2.1 mmol/L (0.4-2.0); Total Protein 8.6 g/dL (6.4-8.2)
[2020-12-25] MEDS ORDERED: DIGOXIN (250MCG/ML) 2 ML AMPULE ONE (14:15)
[2020-12-25] MEDS ORDERED: DIGOXIN (250MCG/ML) 2 ML AMPULE IV ONE (14:15)
[2020-12-25] MEDS: ENOXAPARIN SOD 60 MG/0.6 ML SYRINGE SC SCH ×2 (14:24→21:10)
[2020-12-25] MEDS: Jevity 1.2 Cal/Fiber 1 Liter GT SCH (16:13)
[2020-12-25] MEDS: ATORVASTATIN 20 MG TAB PO SCH (21:10)
[2020-12-25] MEDS: QUEtiapine FUMARATE 25 MG TAB GT SCH (21:10)
[2020-12-26] VITALS (105 sets, daily range): BP systolic 107–143; BP diastolic 37–71
[2020-12-26] MEDS: LACTULOSE 20Gm/30ML SOLN PO SCH ×4 (00:32→17:04)
[2020-12-26] MEDS: FREE WATER GT SCH ×6 (02:04→22:00)
[2020-12-26] MEDS: ACETAMINOPHEN 650 mg PER 20.3 mL UD GT PRN (02:04)
[2020-12-26] MEDS: MIDAZOLAM DRIP 50 mg/50mL 50 ML IV SCH ×2 (02:15→09:19)
[2020-12-26 04:26] LABS: Basophils # (auto) 0.1 10 ^3/uL (0-0.2); Eosinophils # (auto) 0.1 10 ^3/uL (0-0.8); Hemoglobin 8.4 g/dL (13.5-17.5); Mean Corpuscular Hgb Conc. 33.9 g/dL (32.0-36.0); Monocytes # (auto) 0.8 10 ^3/uL (0-1.3); Neutrophils # (auto) 5.5 10 ^3/uL (1.6-8.6); Nucleated Red Blood Cells % 0.1 %; Red Cell Distribution Width 15.7 % (11.8-14.3); White Blood Cell 7.5 10^3/uL (4.4-10.8)
[2020-12-26 04:27] LABS: Basophils % (auto) 1.1 % (0.0-2.0); Eosinophils % (auto) 1.6 % (0.0-7.0); Hematocrit 24.7 % (41.0-53.0); Lymphocytes % (auto) 13.1 % (10.0-50.0); Mean Corpuscular Hemoglobin 30.7 pg (28.0-32.0); Mean Corpuscular Volume 90.5 fL (80.0-100.0); Monocytes % (auto) 10.6 % (0.0-12.0); Neutrophils % (auto) 73.6 % (37.0-80.0); Platelet Count (auto) 198 10^3/uL (140-450); Red Blood Cells 2.73 10^6/uL (4.5-5.90)
[2020-12-26 04:41] LABS: Potassium 4.9 mmol/L (3.5-5.1)
[2020-12-26 04:47] LABS: Albumin 1.8 g/dL (3.4-5.0); Calcium 7.8 mg/dL (8.5-10.1)
[2020-12-26] MEDS: PROPOFOL 100 ML IV SCH (07:45)
[2020-12-26] MEDS: CLOPIDOGREL BISULFATE 75 MG TAB PO SCH (09:17)
[2020-12-26] MEDS: ASPirin 81 mg TAB PO SCH (09:17)
[2020-12-26] MEDS: ENOXAPARIN SOD 60 MG/0.6 ML SYRINGE SC SCH ×2 (09:17→22:45)
[2020-12-26] MEDS: PANTOPRAZOLE 40 MG/10 ML VIAL INJ IV SCH ×2 (09:17→22:45)
[2020-12-26] MEDS: CEFTRIAXONE SODIUM 2 GM in D5W 5% 50 ML IV SCH (09:17)
[2020-12-26] MEDS: SOD CHL 0.45% 1,000 ML IV SCH (09:18)
[2020-12-26] MEDS: NOREPINEPHRINE 8 MG/250ML KIT 250 ML IV SCH (12:30)
[2020-12-26] MEDS: fentaNYL Drip 2500mCg/250mlNS 250 ML IV SCH (15:21)
[2020-12-26] MEDS: SODIUM CHLORIDE 0.9% 1,000 ML IV SCH (15:30)
[2020-12-26] MEDS ORDERED: FUROSEMIDE 40 MG/4 ML VIAL IV ONE (15:30)
[2020-12-26] MEDS ORDERED: AMIODARONE HCL 200 MG TAB ONE (16:54)
[2020-12-26] MEDS: AMIODARONE HCL 200 MG TAB PO SCH ×2 (17:04→22:45)
[2020-12-26] MEDS: ATORVASTATIN 20 MG TAB PO SCH (22:45)
[2020-12-26] MEDS: QUEtiapine FUMARATE 25 MG TAB GT SCH (22:45)
[2020-12-27] VITALS (102 sets, daily range): BP systolic 99–135; BP diastolic 43–74
[2020-12-27 00:17] LABS: Albumin 1.8 g/dL (3.4-5.0); Calcium 7.8 mg/dL (8.5-10.1); Potassium 4.5 mmol/L (3.5-5.1)
[2020-12-27 00:19] LABS: BUN/Creatinine Ratio 13.9; Bilirubin, Total 0.7 mg/dL (0.2-1.0); Total Protein 8.9 g/dL (6.4-8.2)
[2020-12-27] MEDS: LACTULOSE 20Gm/30ML SOLN PO SCH ×3 (01:04→21:52)
[2020-12-27] MEDS: FREE WATER GT SCH ×3 (02:01→10:21)
[2020-12-27] MEDS: SODIUM CHLORIDE 0.9% 1,000 ML IV SCH ×2 (02:01→10:22)
[2020-12-27] MEDS: PROPOFOL 100 ML IV SCH (07:45)
[2020-12-27] MEDS: CLOPIDOGREL BISULFATE 75 MG TAB PO SCH (10:20)
[2020-12-27] MEDS: ENOXAPARIN SOD 60 MG/0.6 ML SYRINGE SC SCH ×2 (10:20→21:53)
[2020-12-27] MEDS: PANTOPRAZOLE 40 MG/10 ML VIAL INJ IV SCH ×2 (10:21→21:52)
[2020-12-27] MEDS: AMIODARONE HCL 200 MG TAB PO SCH ×2 (10:21→21:52)
[2020-12-27] MEDS: ASPirin 81 mg TAB PO SCH (10:21)
[2020-12-27] MEDS: fentaNYL Drip 2500mCg/250mlNS 250 ML IV SCH (10:22)
[2020-12-27] MEDS: NOREPINEPHRINE 8 MG/250ML KIT 250 ML IV SCH (10:22)
[2020-12-27] MEDS: CEFTRIAXONE SODIUM 2 GM in D5W 5% 50 ML IV SCH (10:48)
[2020-12-27] MEDS: MIDAZOLAM DRIP 50 mg/50mL 50 ML IV SCH ×3 (13:16→21:53)
[2020-12-27] MEDS ORDERED: FUROSEMIDE 40 MG/4 ML VIAL IV ONE (15:15)
[2020-12-27 16:03] LABS: Urine Bacteria NONE SEEN /hpf (None Seen); Urine Blood 3+ /uL (Negative); Urine Budding Yeast MANY /hpf (None Seen); Urine Hyaline Cast MANY /lpf (0 - 2); Urine Mucus FEW (None Seen); Urine Specific Gravity 1.026 (1.001-1.035); Urine WBC 184 /hpf (0 - 3)
[2020-12-27] MEDS: QUEtiapine FUMARATE 25 MG TAB GT SCH (21:52)
[2020-12-27] MEDS: ATORVASTATIN 20 MG TAB PO SCH (21:52)
[2020-12-28] VITALS (105 sets, daily range): BP systolic 100–135; BP diastolic 44–64
[2020-12-28] MEDS: MIDAZOLAM DRIP 50 mg/50mL 50 ML IV SCH ×3 (01:29→19:48)
[2020-12-28 04:14] LABS: BUN/Creatinine Ratio 16.2; Calcium 7.6 mg/dL (8.5-10.1)
[2020-12-28 07:34] LABS: Basophils # (auto) 0.1 10 ^3/uL (0-0.2); Eosinophils # (auto) 0.2 10 ^3/uL (0-0.8); Eosinophils % (auto) 4.2 % (0.0-7.0); Nucleated Red Blood Cells % 0.1 %
[2020-12-28 07:36] LABS: Hematocrit 20.1 % (41.0-53.0); Lymphocytes # (auto) 0.7 10 ^3/uL (0.4-5.4); Lymphocytes % (auto) 12.3 % (10.0-50.0); Mean Corpuscular Hemoglobin 30.3 pg (28.0-32.0); Mean Corpuscular Hgb Conc. 33.9 g/dL (32.0-36.0); Mean Corpuscular Volume 89.5 fL (80.0-100.0); Monocytes # (auto) 0.6 10 ^3/uL (0-1.3); Monocytes % (auto) 11.5 % (0.0-12.0); Neutrophils # (auto) 3.9 10 ^3/uL (1.6-8.6); Platelet Count (auto) 128 10^3/uL (140-450); Red Blood Cells 2.24 10^6/uL (4.5-5.90); Red Cell Distribution Width 15.3 % (11.8-14.3); White Blood Cell 5.5 10^3/uL (4.4-10.8)
[2020-12-28 07:44] LABS: Hemoglobin 6.8 g/dL (13.5-17.5)
[2020-12-28] MEDS: PROPOFOL 100 ML IV SCH (07:45)
[2020-12-28] MEDS: fentaNYL Drip 2500mCg/250mlNS 250 ML IV SCH (09:23)
[2020-12-28] MEDS: LACTULOSE 20Gm/30ML SOLN PO SCH (09:44)
[2020-12-28] MEDS: PANTOPRAZOLE 40 MG/10 ML VIAL INJ IV SCH ×2 (09:44→22:03)
[2020-12-28] MEDS: AMIODARONE HCL 200 MG TAB PO SCH ×2 (09:44→22:02)
[2020-12-28] MEDS: ASPirin 81 mg TAB PO SCH (09:44)
[2020-12-28] MEDS: ENOXAPARIN SOD 60 MG/0.6 ML SYRINGE SC SCH (09:45)
[2020-12-28] MEDS: CLOPIDOGREL BISULFATE 75 MG TAB PO SCH (09:45)
[2020-12-28] MEDS: CEFTRIAXONE SODIUM 2 GM in D5W 5% 50 ML IV SCH (09:48)
[2020-12-28] MEDS ORDERED: FUROSEMIDE 40 MG/4 ML VIAL IV SCH (10:00)
[2020-12-28] MEDS: NOREPINEPHRINE 8 MG/250ML KIT 250 ML IV SCH (11:11)
[2020-12-28] MEDS: FUROSEMIDE INJECTION 100 MG in D5W 5% 100 ML IV SCH (11:11)
[2020-12-28] MEDS ORDERED: DOXYCYCLINE 100 MG TAB/CAP PO ONE (14:15)
[2020-12-28] MEDS: ALBUMIN 25% 100 ML IV SCH ×2 (14:25→22:04)
[2020-12-28] MEDS: Jevity 1.2 Cal/Fiber 1 Liter GT SCH (16:05)
[2020-12-28] MEDS: QUEtiapine FUMARATE 25 MG TAB GT SCH (22:02)
[2020-12-28] MEDS: ATORVASTATIN 20 MG TAB PO SCH (22:03)
[2020-12-28] MEDS: DOXYCYCLINE 100 MG TAB/CAP PO SCH (22:03)
[2020-12-29] VITALS (79 sets, daily range): BP systolic 93–141; BP diastolic 38–61
[2020-12-29] MEDS: MIDAZOLAM DRIP 50 mg/50mL 50 ML IV SCH ×3 (00:43→21:16)
[2020-12-29] MEDS: fentaNYL Drip 2500mCg/250mlNS 250 ML IV SCH (02:56)
[2020-12-29 05:21] LABS: Basophils # (auto) 0.1 10 ^3/uL (0-0.2); Basophils % (auto) 1.1 % (0.0-2.0); Eosinophils # (auto) 0.3 10 ^3/uL (0-0.8); Eosinophils % (auto) 5.5 % (0.0-7.0); Hematocrit 26.3 % (41.0-53.0); Hemoglobin 8.9 g/dL (13.5-17.5); Lymphocytes # (auto) 0.7 10 ^3/uL (0.4-5.4); Lymphocytes % (auto) 12.3 % (10.0-50.0); Mean Corpuscular Hemoglobin 30.2 pg (28.0-32.0); Mean Corpuscular Hgb Conc. 33.8 g/dL (32.0-36.0); Mean Corpuscular Volume 89.2 fL (80.0-100.0); Monocytes # (auto) 0.7 10 ^3/uL (0-1.3); Monocytes % (auto) 10.9 % (0.0-12.0); Neutrophils # (auto) 4.2 10 ^3/uL (1.6-8.6); Neutrophils % (auto) 70.2 % (37.0-80.0); Nucleated Red Blood Cells % 0.3 %; Platelet Count (auto) 158 10^3/uL (140-450); Red Blood Cells 2.95 10^6/uL (4.5-5.90); Red Cell Distribution Width 15.6 % (11.8-14.3)
[2020-12-29 05:40] LABS: Calcium 8.3 mg/dL (8.5-10.1); Potassium 3.5 mmol/L (3.5-5.1)
[2020-12-29] MEDS: ALBUMIN 25% 100 ML IV SCH (05:48)
[2020-12-29] MEDS: PROPOFOL 100 ML IV SCH (07:45)
[2020-12-29] MEDS: FUROSEMIDE INJECTION 100 MG in D5W 5% 100 ML IV SCH ×2 (07:59→23:00)
[2020-12-29] MEDS: AMIODARONE HCL 200 MG TAB PO SCH (11:11)
[2020-12-29] MEDS: CLOPIDOGREL BISULFATE 75 MG TAB PO SCH (11:31)
[2020-12-29] MEDS: DOXYCYCLINE 100 MG TAB/CAP PO SCH ×2 (11:31→21:16)
[2020-12-29] MEDS: PANTOPRAZOLE 40 MG/10 ML VIAL INJ IV SCH ×2 (11:31→21:16)
[2020-12-29] MEDS: ASPirin 81 mg TAB PO SCH (11:31)
[2020-12-29] MEDS ORDERED: HEPARIN DRIP/D5W 100UNITS/ML 250 ML IV SCH (12:15)
[2020-12-29] MEDS: NOREPINEPHRINE 8 MG/250ML KIT 250 ML IV SCH (12:30)
[2020-12-29 13:57] LABS: INR 1.39 (0.9-1.15); Partial Thromboplastin Time 40.3 sec (23.0-31.2)
[2020-12-29] MEDS: BACLOFEN 10 MG TAB GT SCH ×2 (14:45→21:15)
[2020-12-29] MEDS: HEPARIN DRIP/D5W 100UNITS/ML 250 ML IV SCH (14:54)
[2020-12-29] MEDS ORDERED: chlorproMAZINE INECTION 25 MG in SODIUM CHL 0.9% 50 ML IV ONE (17:45)
[2020-12-29] MEDS: QUEtiapine FUMARATE 25 MG TAB GT SCH (21:15)
[2020-12-29] MEDS: ATORVASTATIN 20 MG TAB PO SCH (21:16)
[2020-12-29 22:03] LABS: INR 1.42 (0.9-1.15); Partial Thromboplastin Time 62.4 sec (23.0-31.2)
[2020-12-30] VITALS (88 sets, daily range): BP systolic 84–170; BP diastolic 26–86
[2020-12-30] MEDS: NOREPINEPHRINE 8 MG/250ML KIT 250 ML IV SCH ×2 (01:30→15:33)
[2020-12-30 04:23] LABS: Basophils # (auto) 0.1 10 ^3/uL (0-0.2); Basophils % (auto) 0.9 % (0.0-2.0); Eosinophils # (auto) 0.5 10 ^3/uL (0-0.8); Eosinophils % (auto) 7.4 % (0.0-7.0); Hematocrit 28.2 % (41.0-53.0); Hemoglobin 9.5 g/dL (13.5-17.5); Lymphocytes # (auto) 1.1 10 ^3/uL (0.4-5.4); Lymphocytes % (auto) 15.4 % (10.0-50.0); Mean Corpuscular Hemoglobin 30.1 pg (28.0-32.0); Mean Corpuscular Hgb Conc. 33.7 g/dL (32.0-36.0); Mean Corpuscular Volume 89.3 fL (80.0-100.0); Monocytes # (auto) 0.8 10 ^3/uL (0-1.3); Monocytes % (auto) 11.1 % (0.0-12.0); Neutrophils # (auto) 4.6 10 ^3/uL (1.6-8.6); Neutrophils % (auto) 65.2 % (37.0-80.0); Platelet Count (auto) 199 10^3/uL (140-450); Red Blood Cells 3.16 10^6/uL (4.5-5.90); Red Cell Distribution Width 15.9 % (11.8-14.3)
[2020-12-30 04:32] LABS: INR 1.4 (0.9-1.15); Partial Thromboplastin Time 67.4 sec (23.0-31.2)
[2020-12-30 04:38] LABS: Calcium 8.5 mg/dL (8.5-10.1); Potassium 3.4 mmol/L (3.5-5.1)
[2020-12-30] MEDS: BACLOFEN 10 MG TAB GT SCH ×3 (05:51→19:31)
[2020-12-30] MEDS: fentaNYL Drip 2500mCg/250mlNS 250 ML IV SCH (06:43)
[2020-12-30] MEDS: PROPOFOL 100 ML IV SCH (06:43)
[2020-12-30] MEDS ORDERED: AMIODARONE HCL 200 MG TAB PO SCH (10:00)
[2020-12-30] MEDS: PANTOPRAZOLE 40 MG/10 ML VIAL INJ IV SCH ×2 (10:16→22:00)
[2020-12-30] MEDS: DOXYCYCLINE 100 MG TAB/CAP PO SCH ×2 (10:16→22:00)
[2020-12-30] MEDS: ASPirin 81 mg TAB PO SCH (10:16)
[2020-12-30] MEDS: HEPARIN DRIP/D5W 100UNITS/ML 250 ML IV SCH (14:26)
[2020-12-30 15:01] LABS: INR 1.4 (0.9-1.15)
[2020-12-30 15:03] LABS: Partial Thromboplastin Time 122.9 sec (23.0-31.2)
[2020-12-30] MEDS: QUEtiapine FUMARATE 25 MG TAB GT SCH (19:31)
[2020-12-30] MEDS: FUROSEMIDE INJECTION 100 MG in D5W 5% 100 ML IV SCH (20:00)
[2020-12-30] MEDS: ATORVASTATIN 20 MG TAB PO SCH (22:00)
[2020-12-30 23:51] LABS: INR 1.48 (0.9-1.15); Partial Thromboplastin Time 59.7 sec (23.0-31.2)
[2020-12-31] VITALS (89 sets, daily range): BP systolic 89–166; BP diastolic 29–57
[2020-12-31] MEDS: BACLOFEN 10 MG TAB GT SCH ×3 (03:40→21:38)
[2020-12-31] MEDS: MIDAZOLAM DRIP 50 mg/50mL 50 ML IV SCH (03:41)
[2020-12-31 04:00] LABS: Basophils # (auto) 0.1 10 ^3/uL (0-0.2); Eosinophils # (auto) 0.4 10 ^3/uL (0-0.8); Eosinophils % (auto) 6.8 % (0.0-7.0); Hematocrit 27.5 % (41.0-53.0); Hemoglobin 9.3 g/dL (13.5-17.5); Lymphocytes # (auto) 0.8 10 ^3/uL (0.4-5.4); Lymphocytes % (auto) 15.1 % (10.0-50.0); Mean Corpuscular Hemoglobin 29.8 pg (28.0-32.0); Mean Corpuscular Hgb Conc. 33.7 g/dL (32.0-36.0); Mean Corpuscular Volume 88.4 fL (80.0-100.0); Monocytes # (auto) 0.7 10 ^3/uL (0-1.3); Monocytes % (auto) 12.7 % (0.0-12.0); Neutrophils # (auto) 3.4 10 ^3/uL (1.6-8.6); Neutrophils % (auto) 64.4 % (37.0-80.0); Platelet Count (auto) 178 10^3/uL (140-450); Red Blood Cells 3.11 10^6/uL (4.5-5.90); White Blood Cell 5.2 10^3/uL (4.4-10.8)
[2020-12-31 04:07] LABS: Calcium 8.4 mg/dL (8.5-10.1); Potassium 3.3 mmol/L (3.5-5.1)
[2020-12-31 04:10] LABS: BUN/Creatinine Ratio 18.5
[2020-12-31] MEDS: PROPOFOL 100 ML IV SCH (06:39)
[2020-12-31] MEDS: ASPirin 81 mg TAB PO SCH (09:53)
[2020-12-31] MEDS: DOXYCYCLINE 100 MG TAB/CAP PO SCH ×2 (09:53→21:38)
[2020-12-31] MEDS: PANTOPRAZOLE 40 MG/10 ML VIAL INJ IV SCH ×2 (09:54→21:38)
[2020-12-31] MEDS ORDERED: DexAMETHasone SOD PHOS 10MG/1ML VIAL INJ ONE (10:53)
[2020-12-31] MEDS ORDERED: PHENYLEPHRINE HCL 10 MG/ML VL ONE (10:53)
[2020-12-31] MEDS ORDERED: ePHEDrine SULFATE 50 MG/ML AMP ONE (10:53)
[2020-12-31] MEDS ORDERED: fentaNYL CITRATE 100 MCG/2 ML VL ONE (10:53)
[2020-12-31] MEDS ORDERED: KETAMINE HCL 10 ML ONE (10:53)
[2020-12-31] MEDS ORDERED: MIDAZOLAM HCL 1MG/1ML-2 ML VIAL ONE (10:53)
[2020-12-31] MEDS ORDERED: ROCURONIUM 10MG/ML 10ML VIAL IV ONE (10:54)
[2020-12-31] MEDS ORDERED: LIDOCAINE 2% (LOCAL ANESTH.) PF 5ml SDV ONE (10:54)
[2020-12-31] MEDS ORDERED: LIDOCAINE 1% HCL (LOCAL ANESTH.) INJ 20ML MDV ONE (11:15)
[2020-12-31] MEDS: LIDOCAINE W/ EPINEPHRINE 1% 20ML VIAL ONE ×2 (11:15→11:53)
[2020-12-31] MEDS ORDERED: BUPIVACAINE 0.5% MPF INJ 30ML SDV IJ ONE (11:15)
[2020-12-31] MEDS: HEPARIN DRIP/D5W 100UNITS/ML 250 ML IV SCH (14:30)
[2020-12-31] MEDS: POTASSIUM CHL 20MEQ/100ML 100 ML IV SCH ×2 (14:44→18:34)
[2020-12-31] MEDS: fentaNYL Drip 2500mCg/250mlNS 250 ML IV SCH (16:15)
[2020-12-31] MEDS: FUROSEMIDE INJECTION 100 MG in D5W 5% 100 ML IV SCH (18:34)
[2020-12-31] MEDS: ATORVASTATIN 20 MG TAB PO SCH (21:38)
[2020-12-31] MEDS: QUEtiapine FUMARATE 25 MG TAB GT SCH (21:38)
[2021-01-01] VITALS (86 sets, daily range): BP systolic 80–163; BP diastolic 30–70
[2021-01-01 01:58] LABS: Basophils # (auto) 0 10 ^3/uL (0-0.2); Basophils % (auto) 0.1 % (0.0-2.0); Eosinophils # (auto) 0 10 ^3/uL (0-0.8); Eosinophils % (auto) 0.1 % (0.0-7.0); Hematocrit 30.8 % (41.0-53.0); Hemoglobin 10.5 g/dL (13.5-17.5); Lymphocytes # (auto) 0.8 10 ^3/uL (0.4-5.4); Lymphocytes % (auto) 12.7 % (10.0-50.0); Mean Corpuscular Volume 88.2 fL (80.0-100.0); Monocytes # (auto) 0.2 10 ^3/uL (0-1.3); Monocytes % (auto) 3.1 % (0.0-12.0); Nucleated Red Blood Cells % 0.1 %; Platelet Count (auto) 204 10^3/uL (140-450); Red Blood Cells 3.49 10^6/uL (4.5-5.90); Red Cell Distribution Width 16.2 % (11.8-14.3)
[2021-01-01 02:15] LABS: BUN/Creatinine Ratio 20.7; Calcium 8.1 mg/dL (8.5-10.1); Potassium 4.5 mmol/L (3.5-5.1)
[2021-01-01] MEDS: MAGNESIUM SULFATE 1GM/100ML 100 ML IV SCH ×3 (03:22→05:35)
[2021-01-01] MEDS: BACLOFEN 10 MG TAB GT SCH (05:35)
[2021-01-01] MEDS: MIDAZOLAM DRIP 50 mg/50mL 50 ML IV SCH (06:35)
[2021-01-01] MEDS: PROPOFOL 100 ML IV SCH (07:45)
[2021-01-01] MEDS: ASPirin 81 mg TAB PO SCH (10:04)
[2021-01-01] MEDS: PANTOPRAZOLE 40 MG/10 ML VIAL INJ IV SCH ×2 (10:04→22:00)
[2021-01-01] MEDS: DOXYCYCLINE 100 MG TAB/CAP PO SCH (10:04)
[2021-01-01] MEDS ORDERED: GLYCOPYRROLATE 0.2 MG/ML 1ML VIAL IV ONE (10:38)
[2021-01-01] MEDS ORDERED: CLOPIDOGREL BISULFATE 75 MG TAB PO ONE (12:00)
[2021-01-01] MEDS: FUROSEMIDE INJECTION 100 MG in D5W 5% 100 ML IV SCH (12:11)
[2021-01-01] MEDS: NOREPINEPHRINE 8 MG/250ML KIT 250 ML IV SCH (12:30)
[2021-01-01] MEDS: MORPHINE SULF INJ 2 MG/ML SYRINGE 1ML IV PRN (15:02)
[2021-01-01] MEDS: fentaNYL Drip 2500mCg/250mlNS 250 ML IV SCH (16:15)
[2021-01-01] MEDS: ATORVASTATIN 20 MG TAB PO SCH (22:00)
[2021-01-02] VITALS (77 sets, daily range): BP systolic 89–170; BP diastolic 39–76
[2021-01-02 04:04] LABS: Basophils # (auto) 0 10 ^3/uL (0-0.2); Basophils % (auto) 0.1 % (0.0-2.0); Eosinophils # (auto) 0 10 ^3/uL (0-0.8); Eosinophils % (auto) 0.1 % (0.0-7.0); Hematocrit 33.2 % (41.0-53.0); Hemoglobin 10.9 g/dL (13.5-17.5); Lymphocytes # (auto) 1.3 10 ^3/uL (0.4-5.4); Mean Corpuscular Hemoglobin 29.5 pg (28.0-32.0); Mean Corpuscular Volume 89.3 fL (80.0-100.0); Monocytes # (auto) 1.5 10 ^3/uL (0-1.3); Monocytes % (auto) 10.3 % (0.0-12.0); Neutrophils # (auto) 11.9 10 ^3/uL (1.6-8.6); Neutrophils % (auto) 80.5 % (37.0-80.0); Nucleated Red Blood Cells % 0.2 %; Platelet Count (auto) 242 10^3/uL (140-450); Red Blood Cells 3.72 10^6/uL (4.5-5.90); Red Cell Distribution Width 16.8 % (11.8-14.3); White Blood Cell 14.8 10^3/uL (4.4-10.8)
[2021-01-02 04:21] LABS: Potassium 3.8 mmol/L (3.5-5.1)
[2021-01-02 04:33] LABS: Albumin 2.1 g/dL (3.4-5.0); BUN/Creatinine Ratio 24.6; Calcium 8.5 mg/dL (8.5-10.1); Magnesium 2.3 mg/dL (1.6-2.6); Total Protein 9.3 g/dL (6.4-8.2)
[2021-01-02] MEDS: PANTOPRAZOLE 40 MG/10 ML VIAL INJ IV SCH ×2 (09:16→21:12)
[2021-01-02] MEDS: FUROSEMIDE 100 MG/10ML VIAL IV SCH (09:16)
[2021-01-02] MEDS: ASPirin 81 mg TAB PO SCH (09:17)
[2021-01-02] MEDS: CLOPIDOGREL BISULFATE 75 MG TAB PO SCH (09:17)
[2021-01-02] MEDS: PROPOFOL 100 ML IV SCH ×2 (09:46→21:54)
[2021-01-02] MEDS ORDERED: Nutren 1.0/Fiber 8 ounces GT SCH (10:30)
[2021-01-02] MEDS ORDERED: NutriHep RTU 240 mL Unflavored GT SCH (11:00)
[2021-01-02] MEDS: ALBUMIN 25% 100 ML IV SCH ×2 (11:02→18:13)
[2021-01-02] MEDS ORDERED: ATROPINE SULF 1 MG/10ml SYR IV ONE (12:28)
[2021-01-02] MEDS: NOREPINEPHRINE 8 MG/250ML KIT 250 ML IV SCH (12:30)
[2021-01-02 12:57] LABS: Basophils # (auto) 0 10 ^3/uL (0-0.2); Eosinophils # (auto) 0 10 ^3/uL (0-0.8); Eosinophils % (auto) 0.1 % (0.0-7.0); Hematocrit 28.7 % (41.0-53.0); Hemoglobin 9.4 g/dL (13.5-17.5); Lymphocytes % (auto) 7.4 % (10.0-50.0); Mean Corpuscular Hemoglobin 29.6 pg (28.0-32.0); Mean Corpuscular Hgb Conc. 32.9 g/dL (32.0-36.0); Mean Corpuscular Volume 89.8 fL (80.0-100.0); Monocytes # (auto) 1.9 10 ^3/uL (0-1.3); Monocytes % (auto) 13.9 % (0.0-12.0); Neutrophils # (auto) 10.6 10 ^3/uL (1.6-8.6); Neutrophils % (auto) 78.6 % (37.0-80.0); Nucleated Red Blood Cells % 0.1 %; Platelet Count (auto) 176 10^3/uL (140-450); Red Blood Cells 3.19 10^6/uL (4.5-5.90); Red Cell Distribution Width 16.6 % (11.8-14.3); White Blood Cell 13.5 10^3/uL (4.4-10.8)
[2021-01-02] MEDS: CEFEPIME 1 GM in SODIUM CHL 0.9% 50 ML IV SCH ×2 (13:05→21:13)
[2021-01-02 13:35] LABS: BUN/Creatinine Ratio 28.1; Calcium 7.9 mg/dL (8.5-10.1); Potassium 4.1 mmol/L (3.5-5.1)
[2021-01-02 13:39] LABS: Lactic Acid w/Reflex 2.4 mmol/L (0.4-2.0)
[2021-01-02] MEDS: MIDAZOLAM DRIP 50 mg/50mL 50 ML IV SCH (17:55)
[2021-01-02] MEDS ORDERED: DEXTROSE (50%) 50ML SYRG IV PRN (19:30)
[2021-01-02] MEDS: Jevity 1.2 Cal/Fiber 1 Liter GT SCH (20:24)
[2021-01-02] MEDS: ATORVASTATIN 20 MG TAB PO SCH (21:12)
[2021-01-02] MEDS: fentaNYL Drip 2500mCg/250mlNS 250 ML IV SCH (22:51)
[2021-01-02] MEDS: ACCU-CHEK COMFORT CURVE STRIP VI SCH (23:31)
[2021-01-02] MEDS: InsuLIN REG 1unit/0.01ml Soln (100units/ml) SC SCH (23:33)
[2021-01-03] VITALS (99 sets, daily range): BP systolic 106–144; BP diastolic 31–80
[2021-01-03] MEDS: ALBUMIN 25% 100 ML IV SCH (02:16)
[2021-01-03 04:35] LABS: Basophils # (auto) 0 10 ^3/uL (0-0.2); Eosinophils # (auto) 0.4 10 ^3/uL (0-0.8); Hematocrit 28.7 % (41.0-53.0); Hemoglobin 9.5 g/dL (13.5-17.5); Lymphocytes # (auto) 1.2 10 ^3/uL (0.4-5.4); Lymphocytes % (auto) 11.4 % (10.0-50.0); Mean Corpuscular Hemoglobin 30.1 pg (28.0-32.0); Mean Corpuscular Hgb Conc. 33.2 g/dL (32.0-36.0); Mean Corpuscular Volume 90.8 fL (80.0-100.0); Monocytes # (auto) 1.2 10 ^3/uL (0-1.3); Monocytes % (auto) 11.3 % (0.0-12.0); Neutrophils % (auto) 73.3 % (37.0-80.0); Nucleated Red Blood Cells % 0.1 %; Platelet Count (auto) 175 10^3/uL (140-450); Red Blood Cells 3.16 10^6/uL (4.5-5.90); Red Cell Distribution Width 17.2 % (11.8-14.3); White Blood Cell 10.9 10^3/uL (4.4-10.8)
[2021-01-03 04:50] LABS: Albumin 2.6 g/dL (3.4-5.0); Calcium 8.6 mg/dL (8.5-10.1); Magnesium 2.3 mg/dL (1.6-2.6); Potassium 3.8 mmol/L (3.5-5.1)
[2021-01-03 04:55] LABS: BUN/Creatinine Ratio 30.6; Bilirubin, Total 1.4 mg/dL (0.2-1.0); Phosphorus 3.2 mg/dL (2.5-4.90); Total Protein 8.4 g/dL (6.4-8.2)
[2021-01-03] MEDS: ACCU-CHEK COMFORT CURVE STRIP VI SCH ×4 (05:38→23:57)
[2021-01-03] MEDS: InsuLIN REG 1unit/0.01ml Soln (100units/ml) SC SCH ×4 (05:41→23:58)
[2021-01-03] MEDS: MIDAZOLAM DRIP 50 mg/50mL 50 ML IV SCH ×2 (08:48→17:44)
[2021-01-03] MEDS: CLOPIDOGREL BISULFATE 75 MG TAB PO SCH (10:14)
[2021-01-03] MEDS: FUROSEMIDE 100 MG/10ML VIAL IV SCH (10:14)
[2021-01-03] MEDS: ASPirin 81 mg TAB PO SCH (10:14)
[2021-01-03] MEDS: PANTOPRAZOLE 40 MG/10 ML VIAL INJ IV SCH ×2 (10:14→21:28)
[2021-01-03] MEDS: CEFEPIME 1 GM in SODIUM CHL 0.9% 50 ML IV SCH ×2 (10:15→21:35)
[2021-01-03] MEDS: NOREPINEPHRINE 8 MG/250ML KIT 250 ML IV SCH (12:30)
[2021-01-03] MEDS: fentaNYL Drip 2500mCg/250mlNS 250 ML IV SCH ×2 (12:43→23:59)
[2021-01-03] MEDS ORDERED: FLUCONAZOLE 200MG/100ML 100 ML IV ONE (15:30)
[2021-01-03] MEDS ORDERED: D5W/SOD CHL 0.45% 1,000 ML IV ONE (15:30)
[2021-01-03] MEDS: PROPOFOL 100 ML IV SCH (15:31)
[2021-01-03] MEDS: Jevity 1.2 Cal/Fiber 1 Liter GT SCH (18:00)
[2021-01-03] MEDS: ATORVASTATIN 20 MG TAB PO SCH (21:28)
[2021-01-03] MEDS: HEPARIN SODIUM (PORCINE) 5000 UNITS/ML 1ML VIAL SC SCH (21:29)
[2021-01-04] VITALS (104 sets, daily range): BP systolic 95–136; BP diastolic 23–91
[2021-01-04] MEDS: PROPOFOL 100 ML IV SCH ×2 (00:44→16:09)
[2021-01-04] MEDS: MIDAZOLAM DRIP 50 mg/50mL 50 ML IV SCH ×3 (00:44→17:00)
[2021-01-04 04:44] LABS: Basophils # (auto) 0 10 ^3/uL (0-0.2); Basophils % (auto) 0.2 % (0.0-2.0); Eosinophils # (auto) 0.6 10 ^3/uL (0-0.8); Eosinophils % (auto) 9.9 % (0.0-7.0); Hematocrit 28.2 % (41.0-53.0); Hemoglobin 9.2 g/dL (13.5-17.5); Lymphocytes # (auto) 0.7 10 ^3/uL (0.4-5.4); Lymphocytes % (auto) 10.9 % (10.0-50.0); Mean Corpuscular Hemoglobin 29.8 pg (28.0-32.0); Mean Corpuscular Hgb Conc. 32.4 g/dL (32.0-36.0); Mean Corpuscular Volume 91.8 fL (80.0-100.0); Monocytes # (auto) 0.7 10 ^3/uL (0-1.3); Monocytes % (auto) 10.8 % (0.0-12.0); Neutrophils # (auto) 4.5 10 ^3/uL (1.6-8.6); Neutrophils % (auto) 68.2 % (37.0-80.0); Platelet Count (auto) 97 10^3/uL (140-450); Red Blood Cells 3.08 10^6/uL (4.5-5.90); Red Cell Distribution Width 16.9 % (11.8-14.3); White Blood Cell 6.6 10^3/uL (4.4-10.8)
[2021-01-04 04:48] LABS: Calcium 8.4 mg/dL (8.5-10.1); Potassium 3.7 mmol/L (3.5-5.1)
[2021-01-04 04:50] LABS: BUN/Creatinine Ratio 33.1
[2021-01-04] MEDS: HEPARIN SODIUM (PORCINE) 5000 UNITS/ML 1ML VIAL SC SCH ×3 (06:00→22:00)
[2021-01-04] MEDS: ACCU-CHEK COMFORT CURVE STRIP VI SCH ×3 (06:16→17:55)
[2021-01-04] MEDS: InsuLIN REG 1unit/0.01ml Soln (100units/ml) SC SCH ×3 (06:17→18:00)
[2021-01-04] MEDS: FLUCONAZOLE 200MG/100ML 100 ML IV SCH (09:16)
[2021-01-04] MEDS ORDERED: FLUCONAZOLE 200MG/100ML 100 ML IV SCH (10:00)
[2021-01-04] MEDS: PANTOPRAZOLE 40 MG/10 ML VIAL INJ IV SCH ×2 (10:00→22:13)
[2021-01-04] MEDS: FLORASTOR (S. BOULARDII) 250 MG CAP PO SCH (10:01)
[2021-01-04] MEDS: CLOPIDOGREL BISULFATE 75 MG TAB PO SCH (10:01)
[2021-01-04] MEDS: ASPirin 81 mg TAB PO SCH (10:01)
[2021-01-04] MEDS: FUROSEMIDE 100 MG/10ML VIAL IV SCH (10:01)
[2021-01-04] MEDS: CEFEPIME 1 GM in SODIUM CHL 0.9% 50 ML IV SCH (10:19)
[2021-01-04] MEDS: NOREPINEPHRINE 8 MG/250ML KIT 250 ML IV SCH (12:30)
[2021-01-04 14:09] LABS: Urine Bacteria NONE SEEN /hpf (None Seen); Urine Blood 3+ /uL (Negative); Urine WBC 367 /hpf (0 - 3)
[2021-01-04 14:11] LABS: Urine Specific Gravity 1.025 (1.001-1.035)
[2021-01-04] MEDS: CIPROFLOXACIN 400MG/200ML 200 ML IV SCH (22:13)
[2021-01-04] MEDS: ATORVASTATIN 20 MG TAB PO SCH (22:13)
[2021-01-04] MEDS: fentaNYL Drip 2500mCg/250mlNS 250 ML IV SCH (23:10)
[2021-01-05] VITALS (95 sets, daily range): BP systolic 91–139; BP diastolic 5–86
[2021-01-05] MEDS: ACCU-CHEK COMFORT CURVE STRIP VI SCH ×5 (00:07→23:39)
[2021-01-05] MEDS: MIDAZOLAM DRIP 50 mg/50mL 50 ML IV SCH ×2 (00:30→16:13)
[2021-01-05 02:12] LABS: Basophils # (auto) 0 10 ^3/uL (0-0.2); Basophils % (auto) 0.4 % (0.0-2.0); Eosinophils # (auto) 0.7 10 ^3/uL (0-0.8); Eosinophils % (auto) 8.8 % (0.0-7.0); Hematocrit 29.5 % (41.0-53.0); Hemoglobin 9.6 g/dL (13.5-17.5); Lymphocytes # (auto) 0.8 10 ^3/uL (0.4-5.4); Lymphocytes % (auto) 9.7 % (10.0-50.0); Mean Corpuscular Hemoglobin 29.7 pg (28.0-32.0); Mean Corpuscular Hgb Conc. 32.4 g/dL (32.0-36.0); Mean Corpuscular Volume 91.7 fL (80.0-100.0); Monocytes # (auto) 0.7 10 ^3/uL (0-1.3); Monocytes % (auto) 8.4 % (0.0-12.0); Neutrophils # (auto) 5.8 10 ^3/uL (1.6-8.6); Neutrophils % (auto) 72.7 % (37.0-80.0); Platelet Count (auto) 110 10^3/uL (140-450); Red Blood Cells 3.22 10^6/uL (4.5-5.90); Red Cell Distribution Width 17.1 % (11.8-14.3)
[2021-01-05 02:33] LABS: INR 1.39 (0.9-1.15)
[2021-01-05 02:34] LABS: BUN/Creatinine Ratio 37.1; Calcium 8.3 mg/dL (8.5-10.1); Potassium 3.8 mmol/L (3.5-5.1)
[2021-01-05] MEDS: InsuLIN REG 1unit/0.01ml Soln (100units/ml) SC SCH ×5 (06:00→23:41)
[2021-01-05] MEDS: PANTOPRAZOLE 40 MG/10 ML VIAL INJ IV SCH ×2 (08:54→22:33)
[2021-01-05] MEDS: FLUCONAZOLE 200MG/100ML 100 ML IV SCH (08:54)
[2021-01-05] MEDS: FREE WATER GT SCH ×4 (08:55→23:40)
[2021-01-05] MEDS: FUROSEMIDE 100 MG/10ML VIAL IV SCH (08:55)
[2021-01-05] MEDS: FLORASTOR (S. BOULARDII) 250 MG CAP PO SCH ×2 (08:55→09:09)
[2021-01-05] MEDS: HEPARIN SODIUM (PORCINE) 5000 UNITS/ML 1ML VIAL SC SCH ×2 (08:55→22:00)
[2021-01-05] MEDS: CIPROFLOXACIN 400MG/200ML 200 ML IV SCH (08:55)
[2021-01-05] MEDS: ASPirin 81 mg TAB PO SCH (10:00)
[2021-01-05] MEDS: CLOPIDOGREL BISULFATE 75 MG TAB PO SCH (10:00)
[2021-01-05] MEDS: NOREPINEPHRINE 8 MG/250ML KIT 250 ML IV SCH (11:31)
[2021-01-05] MEDS: fentaNYL Drip 2500mCg/250mlNS 250 ML IV SCH (12:48)
[2021-01-05] MEDS: PROPOFOL 100 ML IV SCH (12:48)
[2021-01-05] MEDS ORDERED: VANCOMYCIN HCL 1000 MG VL ONE (14:47)
[2021-01-05] MEDS ORDERED: LIDOCAINE 2%HCL (LOCAL ANESTH.) INJ 20ML MDV ONE (14:50)
[2021-01-05] MEDS: Jevity 1.2 Cal/Fiber 1 Liter GT SCH (16:12)
[2021-01-05] MEDS: ATORVASTATIN 20 MG TAB PO SCH (22:33)
[2021-01-06] VITALS (70 sets, daily range): BP systolic 99–129; BP diastolic 38–58
[2021-01-06 05:25] LABS: Basophils # (auto) 0 10 ^3/uL (0-0.2); Basophils % (auto) 0.4 % (0.0-2.0); Eosinophils # (auto) 0.6 10 ^3/uL (0-0.8); Eosinophils % (auto) 8.2 % (0.0-7.0); Hematocrit 29.2 % (41.0-53.0); Hemoglobin 9.4 g/dL (13.5-17.5); Lymphocytes # (auto) 0.7 10 ^3/uL (0.4-5.4); Lymphocytes % (auto) 8.3 % (10.0-50.0); Mean Corpuscular Hgb Conc. 32.3 g/dL (32.0-36.0); Mean Corpuscular Volume 92.9 fL (80.0-100.0); Monocytes # (auto) 0.5 10 ^3/uL (0-1.3); Monocytes % (auto) 6.7 % (0.0-12.0); Neutrophils % (auto) 76.4 % (37.0-80.0); Nucleated Red Blood Cells % 0.1 %; Platelet Count (auto) 139 10^3/uL (140-450); Red Blood Cells 3.15 10^6/uL (4.5-5.90); Red Cell Distribution Width 17.8 % (11.8-14.3); White Blood Cell 7.8 10^3/uL (4.4-10.8)
[2021-01-06] MEDS: fentaNYL Drip 2500mCg/250mlNS 250 ML IV SCH (05:26)
[2021-01-06 05:44] LABS: Albumin 1.7 g/dL (3.4-5.0); Calcium 8.3 mg/dL (8.5-10.1)
[2021-01-06 05:49] LABS: BUN/Creatinine Ratio 35.7; Bilirubin, Total 1.9 mg/dL (0.2-1.0); Total Protein 6.8 g/dL (6.4-8.2)
[2021-01-06] MEDS: FREE WATER GT SCH ×3 (05:55→18:24)
[2021-01-06] MEDS: ACCU-CHEK COMFORT CURVE STRIP VI SCH ×3 (05:55→18:24)
[2021-01-06] MEDS: InsuLIN REG 1unit/0.01ml Soln (100units/ml) SC SCH ×3 (05:58→18:00)
[2021-01-06] MEDS: CLOPIDOGREL BISULFATE 75 MG TAB PO SCH (08:49)
[2021-01-06] MEDS: ASPirin 81 mg TAB PO SCH (08:49)
[2021-01-06] MEDS: FUROSEMIDE 100 MG/10ML VIAL IV SCH (10:00)
[2021-01-06] MEDS: PANTOPRAZOLE 40 MG/10 ML VIAL INJ IV SCH ×2 (13:04→21:36)
[2021-01-06] MEDS: FLORASTOR (S. BOULARDII) 250 MG CAP PO SCH (13:04)
[2021-01-06] MEDS: NEOMYCIN-POLYMY-DEXAMETH 0.1% OPTH(EYE) OINT 3.5GM RIGHTEYE SCH ×2 (14:00→21:38)
[2021-01-06] MEDS: Jevity 1.2 Cal/Fiber 1 Liter GT SCH (18:30)
[2021-01-06] MEDS: ATORVASTATIN 20 MG TAB PO SCH (21:37)
[2021-01-06] MEDS: BACLOFEN 10 MG TAB PO PRN (21:38)
[2021-01-07] VITALS (48 sets, daily range): BP systolic 99–158; BP diastolic 39–73
[2021-01-07] MEDS: ACCU-CHEK COMFORT CURVE STRIP VI SCH ×4 (00:06→18:00)
[2021-01-07] MEDS: FREE WATER GT SCH ×4 (00:07→18:00)
[2021-01-07] MEDS: InsuLIN REG 1unit/0.01ml Soln (100units/ml) SC SCH ×4 (00:08→18:45)
[2021-01-07 04:37] LABS: Basophils # (auto) 0.1 10 ^3/uL (0-0.2); Basophils % (auto) 0.5 % (0.0-2.0); Eosinophils # (auto) 0.7 10 ^3/uL (0-0.8); Eosinophils % (auto) 6.6 % (0.0-7.0); Hematocrit 31.1 % (41.0-53.0); Hemoglobin 10.2 g/dL (13.5-17.5); Lymphocytes # (auto) 0.9 10 ^3/uL (0.4-5.4); Lymphocytes % (auto) 8.1 % (10.0-50.0); Mean Corpuscular Hemoglobin 29.7 pg (28.0-32.0); Mean Corpuscular Hgb Conc. 32.7 g/dL (32.0-36.0); Mean Corpuscular Volume 90.8 fL (80.0-100.0); Monocytes # (auto) 0.8 10 ^3/uL (0-1.3); Monocytes % (auto) 7.3 % (0.0-12.0); Neutrophils # (auto) 8.5 10 ^3/uL (1.6-8.6); Neutrophils % (auto) 77.5 % (37.0-80.0); Platelet Count (auto) 189 10^3/uL (140-450); Red Blood Cells 3.43 10^6/uL (4.5-5.90); Red Cell Distribution Width 17.7 % (11.8-14.3); White Blood Cell 10.9 10^3/uL (4.4-10.8)
[2021-01-07 04:56] LABS: Albumin 1.9 g/dL (3.4-5.0); BUN/Creatinine Ratio 35.5; Calcium 8.5 mg/dL (8.5-10.1); Potassium 4.1 mmol/L (3.5-5.1)
[2021-01-07 04:59] LABS: Bilirubin, Total 1.5 mg/dL (0.2-1.0); Total Protein 7.6 g/dL (6.4-8.2)
[2021-01-07] MEDS: NEOMYCIN-POLYMY-DEXAMETH 0.1% OPTH(EYE) OINT 3.5GM RIGHTEYE SCH ×3 (05:39→23:03)
[2021-01-07] MEDS: BACLOFEN 10 MG TAB PO PRN (05:48)
[2021-01-07] MEDS: PANTOPRAZOLE 40 MG/10 ML VIAL INJ IV SCH ×2 (10:19→23:02)
[2021-01-07] MEDS: ASPirin 81 mg TAB PO SCH (10:20)
[2021-01-07] MEDS: FUROSEMIDE 100 MG/10ML VIAL IV SCH (10:20)
[2021-01-07] MEDS: FLORASTOR (S. BOULARDII) 250 MG CAP PO SCH (10:20)
[2021-01-07] MEDS: CLOPIDOGREL BISULFATE 75 MG TAB PO SCH (16:33)
[2021-01-07] MEDS: ATORVASTATIN 20 MG TAB PO SCH (23:03)
[2021-01-08] VITALS (33 sets, daily range): BP systolic 99–201; BP diastolic 39–84
[2021-01-08] MEDS: MORPHINE SULF INJ 2 MG/ML SYRINGE 1ML IV PRN (01:15)
[2021-01-08] MEDS: ACETAMINOPHEN 650 mg PER 20.3 mL UD GT PRN ×2 (01:15→22:23)
[2021-01-08 04:22] LABS: Basophils # (auto) 0 10 ^3/uL (0-0.2); Basophils % (auto) 0.5 % (0.0-2.0); Eosinophils # (auto) 0.5 10 ^3/uL (0-0.8); Eosinophils % (auto) 5.5 % (0.0-7.0); Hematocrit 29.8 % (41.0-53.0); Hemoglobin 9.6 g/dL (13.5-17.5); Lymphocytes # (auto) 1.1 10 ^3/uL (0.4-5.4); Lymphocytes % (auto) 11.3 % (10.0-50.0); Mean Corpuscular Hemoglobin 29.4 pg (28.0-32.0); Mean Corpuscular Hgb Conc. 32.3 g/dL (32.0-36.0); Monocytes # (auto) 0.9 10 ^3/uL (0-1.3); Monocytes % (auto) 8.9 % (0.0-12.0); Neutrophils # (auto) 7.3 10 ^3/uL (1.6-8.6); Neutrophils % (auto) 73.8 % (37.0-80.0); Platelet Count (auto) 177 10^3/uL (140-450); Red Blood Cells 3.28 10^6/uL (4.5-5.90); Red Cell Distribution Width 17.7 % (11.8-14.3); White Blood Cell 9.9 10^3/uL (4.4-10.8)
[2021-01-08 04:44] LABS: Albumin 1.7 g/dL (3.4-5.0); Calcium 8.4 mg/dL (8.5-10.1); Potassium 3.9 mmol/L (3.5-5.1)
[2021-01-08 04:49] LABS: Bilirubin, Total 1.3 mg/dL (0.2-1.0); Total Protein 7.2 g/dL (6.4-8.2)
[2021-01-08] MEDS: NEOMYCIN-POLYMY-DEXAMETH 0.1% OPTH(EYE) OINT 3.5GM RIGHTEYE SCH ×3 (06:10→22:13)
[2021-01-08] MEDS: FREE WATER GT SCH ×2 (06:10)
[2021-01-08] MEDS: InsuLIN REG 1unit/0.01ml Soln (100units/ml) SC SCH ×4 (06:12→18:00)
[2021-01-08] MEDS: ACCU-CHEK COMFORT CURVE STRIP VI SCH ×4 (06:13→18:00)
[2021-01-08] MEDS: PANTOPRAZOLE 40 MG/10 ML VIAL INJ IV SCH ×2 (11:49→22:12)
[2021-01-08] MEDS: D5W 5% 1,000 ML IV SCH (11:50)
[2021-01-08] MEDS: CLOPIDOGREL BISULFATE 75 MG TAB PO SCH (11:50)
[2021-01-08] MEDS: ASPirin 81 mg TAB PO SCH (11:50)
[2021-01-08] MEDS: FLORASTOR (S. BOULARDII) 250 MG CAP PO SCH (11:50)
[2021-01-08] MEDS: hydrALAZINE HCL 20 MG/ML VL IV PRN (22:12)
[2021-01-08] MEDS: ATORVASTATIN 20 MG TAB PO SCH (22:13)
[2021-01-09] VITALS (43 sets, daily range): BP systolic 127–182; BP diastolic 42–69
[2021-01-09] MEDS: InsuLIN REG 1unit/0.01ml Soln (100units/ml) SC SCH ×4 (00:33→17:12)
[2021-01-09] MEDS: ACCU-CHEK COMFORT CURVE STRIP VI SCH ×4 (00:34→17:12)
[2021-01-09] MEDS: D5W 5% 1,000 ML IV SCH ×2 (01:35→14:34)
[2021-01-09] MEDS: hydrALAZINE HCL 20 MG/ML VL IV PRN (04:45)
[2021-01-09 04:46] LABS: BUN/Creatinine Ratio 25.9; Calcium 8.2 mg/dL (8.5-10.1); Potassium 3.3 mmol/L (3.5-5.1)
[2021-01-09] MEDS: NEOMYCIN-POLYMY-DEXAMETH 0.1% OPTH(EYE) OINT 3.5GM RIGHTEYE SCH ×3 (06:36→22:05)
[2021-01-09] MEDS ORDERED: LISINOPRIL 5 MG TAB PO SCH (10:00)
[2021-01-09] MEDS ORDERED: POTASSIUM EFFERVESENT TAB 25 MEQ GT ONE (10:00)
[2021-01-09] MEDS: PANTOPRAZOLE 40 MG/10 ML VIAL INJ IV SCH ×2 (14:30→22:05)
[2021-01-09] MEDS: FUROSEMIDE 100 MG/10ML VIAL IV SCH (14:30)
[2021-01-09] MEDS: ASPirin 81 mg TAB PO SCH (14:31)
[2021-01-09] MEDS: FLORASTOR (S. BOULARDII) 250 MG CAP PO SCH (14:31)
[2021-01-09] MEDS: METOPROLOL TARTRATE 50 MG TAB PO SCH ×3 (14:32→22:00)
[2021-01-09] MEDS: CLOPIDOGREL BISULFATE 75 MG TAB PO SCH (14:32)
[2021-01-09] MEDS: ENALAPRIL MALEATE 2.5 MG TAB PO SCH ×2 (14:33→22:00)
[2021-01-09] MEDS: ATORVASTATIN 20 MG TAB PO SCH (22:03)
[2021-01-10] VITALS (31 sets, daily range): BP systolic 134–165; BP diastolic 45–67
[2021-01-10] MEDS: InsuLIN REG 1unit/0.01ml Soln (100units/ml) SC SCH ×5 (00:18→23:32)
[2021-01-10] MEDS: ACCU-CHEK COMFORT CURVE STRIP VI SCH ×5 (00:19→23:33)
[2021-01-10] MEDS: MORPHINE SULF INJ 2 MG/ML SYRINGE 1ML IV PRN (01:37)
[2021-01-10] MEDS: hydrALAZINE HCL 20 MG/ML VL IV PRN (01:37)
[2021-01-10] MEDS: D5W 5% 1,000 ML IV SCH ×2 (04:49→17:05)
[2021-01-10] MEDS: NEOMYCIN-POLYMY-DEXAMETH 0.1% OPTH(EYE) OINT 3.5GM RIGHTEYE SCH ×3 (06:00→22:00)
[2021-01-10] MEDS: FLORASTOR (S. BOULARDII) 250 MG CAP PO SCH (10:00)
[2021-01-10 11:24] LABS: Basophils # (auto) 0.1 10 ^3/uL (0-0.2); Basophils % (auto) 0.5 % (0.0-2.0); Eosinophils # (auto) 0.8 10 ^3/uL (0-0.8); Eosinophils % (auto) 7.1 % (0.0-7.0); Hematocrit 29.7 % (41.0-53.0); Hemoglobin 9.8 g/dL (13.5-17.5); Lymphocytes # (auto) 1.3 10 ^3/uL (0.4-5.4); Lymphocytes % (auto) 11.3 % (10.0-50.0); Mean Corpuscular Hemoglobin 29.2 pg (28.0-32.0); Mean Corpuscular Hgb Conc. 32.9 g/dL (32.0-36.0); Mean Corpuscular Volume 88.7 fL (80.0-100.0); Monocytes % (auto) 8.9 % (0.0-12.0); Neutrophils # (auto) 8.4 10 ^3/uL (1.6-8.6); Neutrophils % (auto) 72.2 % (37.0-80.0); Nucleated Red Blood Cells % 0.1 %; Platelet Count (auto) 155 10^3/uL (140-450); Red Blood Cells 3.35 10^6/uL (4.5-5.90); Red Cell Distribution Width 17.3 % (11.8-14.3); White Blood Cell 11.7 10^3/uL (4.4-10.8)
[2021-01-10 11:44] LABS: Calcium 8.3 mg/dL (8.5-10.1); Potassium 3.3 mmol/L (3.5-5.1)
[2021-01-10] MEDS: PANTOPRAZOLE 40 MG/10 ML VIAL INJ IV SCH ×2 (11:56→22:00)
[2021-01-10] MEDS: CLOPIDOGREL BISULFATE 75 MG TAB PO SCH (11:56)
[2021-01-10] MEDS: levoFLOXacin 500MG 100 ML IV SCH (11:56)
[2021-01-10] MEDS: ASPirin 81 mg TAB PO SCH (11:56)
[2021-01-10] MEDS: FUROSEMIDE 100 MG/10ML VIAL IV SCH (11:56)
[2021-01-10] MEDS: ENALAPRIL MALEATE 2.5 MG TAB PO SCH ×2 (11:57→22:00)
[2021-01-10] MEDS: METOPROLOL TARTRATE 50 MG TAB PO SCH ×2 (11:57→22:00)
[2021-01-10] MEDS: FLUCONAZOLE 200MG/100ML 100 ML IV SCH ×2 (13:00→17:22)
[2021-01-10] MEDS: ATORVASTATIN 20 MG TAB PO SCH (22:00)
[2021-01-11] VITALS (23 sets, daily range): BP systolic 125–153; BP diastolic 52–71
[2021-01-11 05:08] LABS: Albumin 1.8 g/dL (3.4-5.0); Calcium 7.9 mg/dL (8.5-10.1); Potassium 3.9 mmol/L (3.5-5.1)
[2021-01-11 05:12] LABS: Bilirubin, Total 1.5 mg/dL (0.2-1.0); Total Protein 7.4 g/dL (6.4-8.2)
[2021-01-11] MEDS: InsuLIN REG 1unit/0.01ml Soln (100units/ml) SC SCH ×3 (05:37→17:47)
[2021-01-11] MEDS: NEOMYCIN-POLYMY-DEXAMETH 0.1% OPTH(EYE) OINT 3.5GM RIGHTEYE SCH ×3 (05:54→21:35)
[2021-01-11] MEDS: ACCU-CHEK COMFORT CURVE STRIP VI SCH ×3 (05:54→17:44)
[2021-01-11] MEDS: D5W 5% 1,000 ML IV SCH ×2 (06:25→18:20)
[2021-01-11 07:10] LABS: Basophils # (auto) 0.1 10 ^3/uL (0-0.2); Basophils % (auto) 0.7 % (0.0-2.0); Eosinophils # (auto) 1.1 10 ^3/uL (0-0.8); Hematocrit 30.7 % (41.0-53.0); Lymphocytes # (auto) 1.6 10 ^3/uL (0.4-5.4); Lymphocytes % (auto) 13.4 % (10.0-50.0); Mean Corpuscular Hgb Conc. 32.5 g/dL (32.0-36.0); Mean Corpuscular Volume 89.1 fL (80.0-100.0); Monocytes # (auto) 0.9 10 ^3/uL (0-1.3); Monocytes % (auto) 7.4 % (0.0-12.0); Neutrophils # (auto) 8.2 10 ^3/uL (1.6-8.6); Neutrophils % (auto) 69.5 % (37.0-80.0); Platelet Count (auto) 154 10^3/uL (140-450); Red Blood Cells 3.44 10^6/uL (4.5-5.90); Red Cell Distribution Width 17.6 % (11.8-14.3); White Blood Cell 11.8 10^3/uL (4.4-10.8)
[2021-01-11] MEDS: FLORASTOR (S. BOULARDII) 250 MG CAP PO SCH (10:16)
[2021-01-11] MEDS: CLOPIDOGREL BISULFATE 75 MG TAB PO SCH (10:16)
[2021-01-11] MEDS: ASPirin 81 mg TAB PO SCH (10:16)
[2021-01-11] MEDS: METOPROLOL TARTRATE 50 MG TAB PO SCH ×2 (10:17→21:38)
[2021-01-11] MEDS: ENALAPRIL MALEATE 2.5 MG TAB PO SCH ×2 (10:21→21:37)
[2021-01-11] MEDS: PANTOPRAZOLE 40 MG/10 ML VIAL INJ IV SCH ×2 (10:24→21:33)
[2021-01-11] MEDS: FUROSEMIDE 100 MG/10ML VIAL IV SCH (10:24)
[2021-01-11] MEDS: levoFLOXacin 500MG 100 ML IV SCH (10:25)
[2021-01-11] MEDS: FLUCONAZOLE 200MG/100ML 100 ML IV SCH ×2 (12:03→13:30)
[2021-01-11] MEDS: Jevity 1.2 Cal/Fiber 1 Liter GT SCH (17:47)
[2021-01-11] MEDS: ATORVASTATIN 20 MG TAB PO SCH (21:33)
[2021-01-12] VITALS (18 sets, daily range): BP systolic 109–142; BP diastolic 46–62
[2021-01-12 04:30] LABS: Basophils # (auto) 0.1 10 ^3/uL (0-0.2); Basophils % (auto) 0.9 % (0.0-2.0); Eosinophils # (auto) 0.9 10 ^3/uL (0-0.8); Eosinophils % (auto) 8.4 % (0.0-7.0); Hematocrit 28.8 % (41.0-53.0); Hemoglobin 9.6 g/dL (13.5-17.5); Lymphocytes # (auto) 1.5 10 ^3/uL (0.4-5.4); Lymphocytes % (auto) 13.3 % (10.0-50.0); Mean Corpuscular Hemoglobin 29.5 pg (28.0-32.0); Mean Corpuscular Hgb Conc. 33.2 g/dL (32.0-36.0); Monocytes # (auto) 0.9 10 ^3/uL (0-1.3); Monocytes % (auto) 7.8 % (0.0-12.0); Neutrophils # (auto) 7.7 10 ^3/uL (1.6-8.6); Neutrophils % (auto) 69.6 % (37.0-80.0); Platelet Count (auto) 150 10^3/uL (140-450); Red Blood Cells 3.24 10^6/uL (4.5-5.90); Red Cell Distribution Width 17.5 % (11.8-14.3); White Blood Cell 11.1 10^3/uL (4.4-10.8)
[2021-01-12 04:44] LABS: Albumin 1.7 g/dL (3.4-5.0); Calcium 7.7 mg/dL (8.5-10.1); Potassium 3.3 mmol/L (3.5-5.1)
[2021-01-12 04:47] LABS: BUN/Creatinine Ratio 16.8; Bilirubin, Total 1.1 mg/dL (0.2-1.0); Total Protein 6.8 g/dL (6.4-8.2)
[2021-01-12] MEDS: ACCU-CHEK COMFORT CURVE STRIP VI SCH ×4 (06:00→18:23)
[2021-01-12] MEDS: NEOMYCIN-POLYMY-DEXAMETH 0.1% OPTH(EYE) OINT 3.5GM RIGHTEYE SCH (06:00)
[2021-01-12] MEDS: PANTOPRAZOLE 40 MG/10 ML VIAL INJ IV SCH (09:13)
[2021-01-12] MEDS: levoFLOXacin 500MG 100 ML IV SCH (09:13)
[2021-01-12] MEDS: ASPirin 81 mg TAB PO SCH (09:13)
[2021-01-12] MEDS: CLOPIDOGREL BISULFATE 75 MG TAB PO SCH (09:13)
[2021-01-12] MEDS: FLORASTOR (S. BOULARDII) 250 MG CAP PO SCH (09:13)
[2021-01-12] MEDS: D5W 5% 1,000 ML IV SCH (09:16)
[2021-01-12] MEDS: ENALAPRIL MALEATE 2.5 MG TAB PO SCH (09:39)
[2021-01-12] MEDS ORDERED: FUROSEMIDE 40 MG/4 ML VIAL IV SCH (10:00)
[2021-01-12] MEDS ORDERED: POTASSIUM EFFERVESENT TAB 25 MEQ GT ONE (10:45)
[2021-01-12] MEDS ORDERED: LACTULOSE 20Gm/30ML SOLN PO PRN (10:45)
[2021-01-12] MEDS: ALBUTEROL SULF 2.5 MG/0.5ML(0.5%) NEB SOLN NEB SCH ×2 (11:09→18:43)
[2021-01-12] MEDS: IPRATROPIUM BROM 0.5 MG/2.5ML INH SOL NEB SCH ×2 (11:09→18:43)
[2021-01-12] MEDS: FREE WATER GT SCH ×2 (11:38→18:24)
[2021-01-12] MEDS: METOPROLOL TARTRATE 50 MG TAB PO SCH (11:39)
[2021-01-12] MEDS: InsuLIN REG 1unit/0.01ml Soln (100units/ml) SC SCH ×3 (11:59→18:24)
[2021-01-13] MEDS ORDERED: POTASSIUM EFFERVESENT TAB 25 MEQ GT SCH (10:00)
[2021-01-13] MEDS ORDERED: PANTOPRAZOLE 40 MG/10 ML VIAL INJ IV SCH (10:00)
[2021-01-13] MEDS ORDERED: FUROSEMIDE 40 MG TAB GT SCH (10:00)
== END 2021-01-12 21:10 | DRG 3 ==
LOC: EDBD 00:32 → ER 00:35 → TELE 00:36 → TELE-WESTW 14:11 → ICU WEST 12-12 06:07 → TELE-CENTR 01-12 14:39
PROVIDERS: ADMIT Nurse Practitioner; ATTEND Internal Medicine
PROC: B2111ZZ Fluoroscopy of Multiple Coronary Arteries using Low Osmolar Contrast (ICD-10-PCS; principal; 2020-12-11)
PROC: 027034Z Dilation of Coronary Artery, One Artery with Drug-eluting Intraluminal Device, Percutaneous Approach (ICD-10-PCS; 2020-12-11)
PROC: B2151ZZ Fluoroscopy of Left Heart using Low Osmolar Contrast (ICD-10-PCS; 2020-12-11)
PROC: 5A1955Z Respiratory Ventilation, Greater than 96 Consecutive Hours (ICD-10-PCS; 2020-12-12)
PROC: 0BH17EZ Insertion of Endotracheal Airway into Trachea, Via Natural or Artificial Opening (ICD-10-PCS; 2020-12-12)
PROC: 009U3ZX Drainage of Spinal Canal, Percutaneous Approach, Diagnostic (ICD-10-PCS; 2020-12-13)
PROC: B246ZZ4 Ultrasonography of Right and Left Heart, Transesophageal (ICD-10-PCS; 2020-12-15)
PROC: 027034Z Dilation of Coronary Artery, One Artery with Drug-eluting Intraluminal Device, Percutaneous Approach (ICD-10-PCS; 2020-12-25)
PROC: 4A023N7 Measurement of Cardiac Sampling and Pressure, Left Heart, Percutaneous Approach (ICD-10-PCS; 2020-12-25)
PROC: B2111ZZ Fluoroscopy of Multiple Coronary Arteries using Low Osmolar Contrast (ICD-10-PCS; 2020-12-25)
PROC: B2151ZZ Fluoroscopy of Left Heart using Low Osmolar Contrast (ICD-10-PCS; 2020-12-25)
PROC: 30233N1 Transfusion of Nonautologous Red Blood Cells into Peripheral Vein, Percutaneous Approach (ICD-10-PCS; 2020-12-28)
PROC: 0W993ZZ Drainage of Right Pleural Cavity, Percutaneous Approach (ICD-10-PCS; 2020-12-31)
PROC: 0B110F4 Bypass Trachea to Cutaneous with Tracheostomy Device, Open Approach (ICD-10-PCS; 2020-12-31)
PROC: 0W9B3ZZ Drainage of Left Pleural Cavity, Percutaneous Approach (ICD-10-PCS; 2021-01-04)
PROC: 0JH606Z Insertion of Pacemaker, Dual Chamber into Chest Subcutaneous Tissue and Fascia, Open Approach (ICD-10-PCS; 2021-01-05)
PROC: 02H63JZ Insertion of Pacemaker Lead into Right Atrium, Percutaneous Approach (ICD-10-PCS; 2021-01-05)
PROC: 02HK3JZ Insertion of Pacemaker Lead into Right Ventricle, Percutaneous Approach (ICD-10-PCS; 2021-01-05)
PROC: 0W9930Z Drainage of Right Pleural Cavity with Drainage Device, Percutaneous Approach (ICD-10-PCS; 2021-01-05)
PROC: 02HV33Z Insertion of Infusion Device into Superior Vena Cava, Percutaneous Approach (ICD-10-PCS; 2021-01-09)
DX: A41.9 Sepsis, unspecified organism (principal); I21.4 Non-ST elevation (NSTEMI) myocardial infarction; G92 Toxic encephalopathy; I50.33 Acute on chronic diastolic (congestive) heart failure; E43 Unspecified severe protein-calorie malnutrition; N17.0 Acute kidney failure with tubular necrosis; J96.01 Acute respiratory failure with hypoxia; R65.21 Severe sepsis with septic shock; J15.1 Pneumonia due to Pseudomonas; D68.9 Coagulation defect, unspecified; E87.2 Acidosis; I31.3 Pericardial effusion (noninflammatory); J98.11 Atelectasis; K76.6 Portal hypertension; J90 Pleural effusion, not elsewhere classified; Z99.11 Dependence on respirator [ventilator] status; J91.8 Pleural effusion in other conditions classified elsewhere; J93.9 Pneumothorax, unspecified; E87.0 Hyperosmolality and hypernatremia; I13.0 Hypertensive heart and chronic kidney disease with heart failure and stage 1 through stage 4 chronic kidney disease, or unspecified chronic kidney disease; K81.0 Acute cholecystitis; D69.6 Thrombocytopenia, unspecified; F15.10 Other stimulant abuse, uncomplicated; F11.10 Opioid abuse, uncomplicated; K74.60 Unspecified cirrhosis of liver; D63.1 Anemia in chronic kidney disease; N18.30 Chronic kidney disease, stage 3 unspecified; D64.9 Anemia, unspecified; I49.5 Sick sinus syndrome; I44.1 Atrioventricular block, second degree; K72.90 Hepatic failure, unspecified without coma; Z68.28 Body mass index [BMI] 28.0-28.9, adult; Z20.822 Contact with and (suspected) exposure to COVID-19
CPT/HCPCS: 36415; 36600; 70450; 71045; 71250; 71275; 73110; 74176; 76700; 76705; 76775; 76942; 80048; 80053; 80202; 80307; 80320; 81001; 82140; 82533; 82570; 82805; 82945; 82962; 83036; 83605; 83615; 83735; 83880; 83935; 83986; 84100; 84156; 84157; 84300; 84443; 84484; 85025; 85379; 85610; 85652; 85730; 86141; 86704; 86706; 86708; 86803; 86850; 86900; 86901; 86920; 87040; 87070; 87077; 87081; 87086; 87088; 87186; 87205; 87340; 87426; 87529; 89051; 93005; 93306; 93312; 93926; 93970; 94003; 94640; 95819; 96365; 96367; 96368; 99152; 99153; 99291; A4565; A4605; C1785; C1874; C1887; C9113; G0378; J0330; J0696; J1100; J1450; J1815; J1956; J2001; J2185; J2250; J2543; J2704; J3480; J3490; J7060; P9047